=== PATIENT | female | born 1985 | race American Indian/Alaskan Native ===

== ENCOUNTER 2017-12-25 08:11 | Emergency (ER) | payer OTHER ==
[2017-12-25 08:34] VITALS: BP 113/72
[2017-12-25 09:23] LABS: Basophils % (Auto) 0.5 % (0.0-1.8); Eosinophils # (Auto) 0.2 K/mm3 (0.0-0.4); Eosinophils % (Auto) 2.5 % (0.0-4.3); Hemoglobin 11.8 gm/dl (10.1-14.3); Lymphocytes # (Auto) 2.5 K/mm3 (1.2-5.4); Lymphocytes % (Auto) 36.5 % (13.4-35.0); Mean Corpuscular HGB Conc 33 % (30-34); Mean Corpuscular Hemoglobin 30 pg (28-32); Mean Corpuscular Volume 91 fl (79-97); Monocytes # (Auto) 0.4 K/mm3 (0.0-0.8); Monocytes % (Auto) 5.3 % (0.0-7.3); Platelet Count 262 K/mm3 (140-440); Red Blood Count 3.95 M/mm3 (3.65-5.03); Red Cell Distribution Width 14.4 % (13.2-15.2)
[2017-12-25 09:26] LABS: HCG Qualitative,Urine Negative (Negative)
[2017-12-25 09:29] LABS: Bacteria,Urine 1+ /HPF (Negative); Bilirubin,Urine NEG (Negative); Blood,Urine NEG (Negative); Color,Urine Yellow (Yellow); Mucus,Urine FEW /HPF; Protein,Urine <15 mg/dL mg/dL (Negative); Urobilinogen,Urine < 2.0 mg/dL (<2.0)
[2017-12-25 09:49] LABS: Alanine Aminotransferase 9 units/L (7-56); BUN/Creatinine Ratio 13; Blood Urea Nitrogen 9 mg/dL (7-17); Calcium 9.1 mg/dL (8.4-10.2); Hemolysis Index 12
[2017-12-25] MEDS ORDERED: TORADOL IM ONE (11:00)
--- NOTE | 2017-12-25 11:05 | Emergency Department Report ---
ED Abdominal Pain HPI - General Chief Complaint: Abdominal Pain Stated Complaint: PAIN STOMACH AND BACK Time Seen by Provider: 12/25/17 10:52 Source: patient Mode of arrival: Ambulatory Limitations: No Limitations - History of Present Illness Initial Comments: This is a 32-year-old female nontoxic, well nourished in appearance, no acute signs of distress presents to the ED with c/o of acute on chronic intermittent right upper quadrant pain that radiates to right flank region x1 month. Patient stated she has a history of gallbladder stones and stated the symptoms are similar as her history of gallstones. Patient denies any nausea, vomiting, chest pain, shortness of breath, numbness, tingling, headache, stiff neck. She denies any dysuria, polyuria or hematuria. Denies any vaginal discharge or vaginal bleeding. Patient denies any allergies. Past medical history includes gallstones. MD Complaint: abdominal pain, flank pain -: month(s) (1) Location: RUQ Radiation: R flank Migration to: no migration Severity: mild Severity scale (0 -10): 8 Quality: aching Consistency: constant Improves With: nothing Worsens With: nothing Associated Symptoms: denies other symptoms. denies: nausea, vomiting, diarrhea , fever, chills, constipation, dysuria, hematemesis, hematochezia, melena, hematuria, anorexia, syncope - Related Data Previous Rx's Medication Instructions Recorded Last Taken Type Ibuprofen [Motrin] 600 mg PO Q8H PRN #30 tablet 12/25/17 Unknown Rx Allergies Allergy/AdvReac Type Severity Reaction Status Date / Time No Known Allergies Allergy Unverified 12/25/17 08:31 ED Review of Systems ROS: Stated complaint: PAIN STOMACH AND BACK Other details as noted in HPI Constitutional: denies: chills, fever Eyes: denies: eye pain, eye discharge, vision change ENT: denies: ear pain, throat pain Respiratory: denies: cough, shortness of breath, wheezing Cardiovascular: denies: chest pain, palpitations Endocrine: no symptoms reported Gastrointestinal: abdominal pain. denies: nausea, diarrhea Genitourinary: denies: urgency, dysuria, discharge Musculoskeletal: denies: back pain, joint swelling, arthralgia Skin: denies: rash, lesions Neurological: denies: headache, weakness, paresthesias Psychiatric: denies: anxiety, depression Hematological/Lymphatic: denies: easy bleeding, easy bruising ED Past Medical Hx - Past Medical History Previous Medical History?: No - Surgical History Past Surgical History?: No - Social History Smoking Status: Never Smoker - Medications Home Medications: Home Medications Medication Instructions Recorded Confirmed Last Taken Type Ibuprofen [Motrin] 600 mg PO Q8H PRN #30 tablet 12/25/17 Unknown Rx ED Physical Exam - General Limitations: No Limitations General appearance: alert, in no apparent distress - Head Head exam: Present: atraumatic, normocephalic - Eye Eye exam: Present: normal appearance Pupils: Present: normal accommodation - ENT ENT exam: Present: normal exam, mucous membranes moist - Neck Neck exam: Present: normal inspection, full ROM - Respiratory Respiratory exam: Present: normal lung sounds bilaterally. Absent: respiratory distress, wheezes, rales, rhonchi, stridor, chest wall tenderness, accessory muscle use, decreased breath sounds, prolonged expiratory - Cardiovascular Cardiovascular Exam: Present: regular rate, normal rhythm, normal heart sounds. Absent: bradycardia, tachycardia, irregular rhythm, systolic murmur, diastolic murmur, rubs, gallop - GI/Abdominal GI/Abdominal exam: Present: soft, tenderness (RUQ), normal bowel sounds. Absent : distended, guarding, rebound, rigid, diminished bowel sounds - Expanded GI/Abdominal Exam Expanded GI/Abdominal exam: Present: Mejía's sign. Absent: psoas sign, obturator sign, heel tap sign, Rovsing's sign, tenderness at [place]bur[place]'s Point, ascites - Rectal Rectal exam: Present: deferred - Extremities Exam Extremities exam: Present: normal inspection, full ROM, normal capillary refill - Back Exam Back exam: Present: normal inspection, full ROM. Absent: tenderness, CVA tenderness (R), CVA tenderness (L), muscle spasm, paraspinal tenderness, vertebral tenderness, rash noted - Neurological Exam Neurological exam: Present: alert, oriented X3, normal gait - Psychiatric Psychiatric exam: Present: normal affect, normal mood - Skin Skin exam: Present: warm, dry, intact, normal color. Absent: rash ED Course Vital Signs 12/25/17 08:32 Temperature 98.5 F Pulse Rate 78 Respiratory 18 Rate Blood Pressure 113/72 O2 Sat by Pulse 100 Oximetry - Reevaluation(s) Reevaluation #1: 12/25/17 11:08 Patient is speaking in full sentences with no signs of distress noted. ED Medical Decision Making - Lab Data Result diagrams: 12/25/17 09:08 12/25/17 09:08 - Medical Decision Making This is a 32-year-old female that presents with gallstones. Patient is stable and was examined by me. Labs within normal limits. UA within normal limits. US abdomen obtained and dictated by radiologist. Patient is notified of the US report with no questions noted by the patient. Patient did receive Toradol 60 mg IM in the ED which patient stated symptoms are improving and subsiding. Patient was instructed and referred to Follow-up with a primary care doctor/ general surgeon in 3-5 days or if symptoms worsen and continue return to emergency room as soon as possible. At time of discharge, the patient does not seem toxic or ill in appearance. No acute signs of distress noted. Patient agrees to discharge treatment plan of care. No further questions noted by the patient. Critical care attestation.: If time is entered above; I have spent that time in minutes in the direct care of this critically ill patient, excluding procedure time. ED Disposition Clinical Impression: Gallstones Disposition: DC-01 TO HOME OR SELFCARE Is pt being admited?: No Does the pt Need Aspirin: No Condition: Stable Instructions: Ibuprofen (By mouth) Additional Instructions: Follow-up with a primary care doctor/general suregon in 3-5 days or if symptoms worsen and continue return to emergency room as soon as possible. Do not drink any alcohol or eat fatty foods as this triggers gallstones. Prescriptions: Ibuprofen [Motrin] 600 mg PO Q8H PRN #30 tablet PRN Reason: Pain Referrals: PRIMARY CARE, [Primary Care Provider] - 3-5 Days JEREMIAH MANZANO MD [Staff Physician] - 3-5 Days YARON SHAH MD [Staff Physician] - 3-5 Days [facility] [Outside] - 3-5 Days [facility] [Outside] - 3-5 Days Forms: Work/School Release Form(ED)
--- NOTE | 2017-12-25 11:54 | Ultrasound Report ---
ULTRASOUND ABDOMEN COMPLETE: TECHNIQUE: Transabdominal ultrasound with color Doppler interrogation. HISTORY: abdominal pain. COMPARISON: none. FINDINGS: LIVER: Normal. BILIARY SYSTEM: A large shadowing gallstone is identified in the gallbladder neck measuring up to 1.7 cm. No abnormal gallbladder distention or wall thickening. The CBD measures 4 mm. PANCREAS: Normal. SPLEEN: Normal. KIDNEYS: Normal. AORTA/IVC: Normal. ASCITES: None. IMPRESSION: Large gallstone. No secondary findings of acute cholecystitis.
== END 2017-12-25 12:31 | disposition home or self-care (01) ==
LOC: ED 08:11
DX: K80.80 Other cholelithiasis without obstruction (principal); G89.29 Other chronic pain
CPT/HCPCS: 36415; 76700; 80053; 81001; 81025; 85025; 96372; 99284; J1885

== ENCOUNTER 2018-10-05 12:49 | Inpatient (IN) | payer SELFPAY ==
--- NOTE | 2018-10-05 13:17 | Emergency Department Report ---
ED General Adult HPI - General Chief complaint: Hyperglycemia Stated complaint: HIGH GLUCOSE Time Seen by Provider: 10/05/18 13:06 Source: patient, RN notes reviewed, old records reviewed Mode of arrival: Ambulatory Limitations: No Limitations - History of Present Illness Initial comments: This is a 32-year-old female who is not known to this provider previously, who does not have a formal diagnosis of diabetes, who presents to the ER with polyuria, polydipsia and hyperglycemia. She reports symptoms present 3 weeks. She is not having pain. She reports that at work, a coworker noticed that she was urinating frequently, and checked her glucose in the office, and it was greater than 500. Her symptoms are constant for the past 3 weeks, did not radiate anywhere, or painless, and do not have exacerbating or relieving factors. Patient reports that she consumes quite a bit of juice, and does not get much physical activity. She does not have any physical pain per se. -: Gradual, week(s) Consistency: constant Improves with: none Worsens with: none Associated Symptoms: other (polyuria, polydipsia). denies: confusion, chest pain, cough, diaphoresis, fever/chills, headaches, loss of appetite, malaise, nausea/vomiting, rash, seizure, shortness of breath, syncope, weakness - Related Data Previous Rx's Medication Instructions Recorded Last Taken Type Ibuprofen [Motrin] 600 mg PO Q8H PRN #30 tablet 12/25/17 1 Month Ago Rx ~01/15/18 HYDROcodone/APAP 5-325 [[place] 1 - 2 each PO Q4HR PRN #30 tablet 02/16/18 Unknown Rx 5/325] Allergies Allergy/AdvReac Type Severity Reaction Status Date / Time Penicillins Allergy Hives Verified 02/14/18 06:48 ED Review of Systems ROS: Stated complaint: HIGH GLUCOSE Other details as noted in HPI Constitutional: denies: fever Eyes: denies: eye discharge ENT: denies: epistaxis Respiratory: denies: cough Cardiovascular: denies: chest pain Endocrine: increased thirst, increased urine Gastrointestinal: denies: abdominal pain, nausea, vomiting Genitourinary: frequency. denies: dysuria Musculoskeletal: denies: back pain Skin: denies: lesions Neurological: denies: headache Psychiatric: denies: anxiety ED Past Medical Hx - Past Medical History Previous Medical History?: No Hx Diabetes: No Hx HIV: No - Surgical History Hx Cholecystectomy: Yes - Social History Smoking Status: Current Every Day Smoker Substance Use Type: None - Medications Home Medications: Home Medications Medication Instructions Recorded Confirmed Last Taken Type Ibuprofen [Motrin] 600 mg PO Q8H PRN #30 tablet 12/25/17 02/14/18 1 Month Ago Rx ~01/15/18 HYDROcodone/APAP 5-325 [[place] 1 - 2 each PO Q4HR PRN #30 tablet 02/16/18 Unknown Rx 5/325] ED Physical Exam - General Limitations: No Limitations General appearance: alert, in no apparent distress - Head Head exam: Present: atraumatic, normocephalic - Eye Eye exam: Present: normal appearance, EOMI. Absent: nystagmus - ENT ENT exam: Present: normal exam, normal orophraynx, mucous membranes moist, normal external ear exam - Neck Neck exam: Present: normal inspection, full ROM. Absent: tenderness, meningismus - Respiratory Respiratory exam: Present: normal lung sounds bilaterally. Absent: respiratory distress - Cardiovascular Cardiovascular Exam: Present: regular rate, normal rhythm, normal heart sounds. Absent: bradycardia, tachycardia, irregular rhythm, systolic murmur, diastolic murmur, rubs, gallop - GI/Abdominal GI/Abdominal exam: Present: soft. Absent: distended, tenderness, guarding, rebound, rigid, pulsatile mass - Extremities Exam Extremities exam: Present: normal inspection, full ROM, other (2+ pulses noted in the bilateral upper, lower extremities. Compartments soft. No long bony tenderness. The pelvis is stable.). Absent: pedal edema, joint swelling, calf tenderness - Back Exam Back exam: Present: normal inspection, full ROM. Absent: tenderness, CVA tenderness (R), paraspinal tenderness, vertebral tenderness - Neurological Exam Neurological exam: Present: alert, oriented X3, CN II-XII intact, normal gait, other (Extraocular movements intact. Tongue midline. No facial droop. Facial sensation intact to light touch in the V1, V2, V3 distribution bilaterally. 5 and 5 strength in 4 extremities.. Sensation is intact to light touch in 4 extremities.). Absent: motor sensory deficit - Psychiatric Psychiatric exam: Present: normal affect, normal mood - Skin Skin exam: Present: warm, dry, intact, normal color. Absent: rash ED Course Vital Signs 10/05/18 10/05/18 12:55 13:40 Temperature 98.3 F 98.5 F Pulse Rate 98 H 18 L Respiratory 16 18 Rate Blood Pressure 139/90 Blood Pressure 117/78 [Right] O2 Sat by Pulse 100 100 Oximetry ED Medical Decision Making - Lab Data Result diagrams: 10/05/18 13:19 10/05/18 13:20 Vital Signs 10/05/18 10/05/18 12:55 13:40 Temperature 98.3 F 98.5 F Pulse Rate 98 H 18 L Respiratory 16 18 Rate Blood Pressure 139/90 Blood Pressure 117/78 [Right] O2 Sat by Pulse 100 100 Oximetry Lab Results 10/05/18 10/05/18 10/05/18 Range/Units 13:01 13:19 13:20 WBC 6.8 (4.5-11.0) K/mm3 RBC 4.24 (3.65-5.03) M/mm3 Hgb 12.5 (10.1-14.3) gm/dl Hct 38.2 (30.3-42.9) % MCV 90 (79-97) fl MCH 30 (28-32) pg MCHC 33 (30-34) % RDW 15.2 (13.2-15.2) % Plt Count 277 (140-440) K/mm3 Lymph % (Auto) 20.5 (13.4-35.0) % [place] % (Auto) 6.3 (0.0-7.3) % Eos % (Auto) 0.9 (0.0-4.3) % Baso % (Auto) 1.2 (0.0-1.8) % Lymph # 1.4 (1.2-5.4) K/mm3 [place] # 0.4 (0.0-0.8) K/mm3 Eos # 0.1 (0.0-0.4) K/mm3 Baso # 0.1 (0.0-0.1) K/mm3 Seg Neutrophils % 71.1 H (40.0-70.0) % Seg Neutrophils # 4.8 (1.8-7.7) K/mm3 VBG pH (7.320-7.420) Sodium 120 L (137-145) mmol/L Potassium 4.6 (3.6-5.0) mmol/L Chloride 80.9 L (98-107) mmol/L Carbon Dioxide 20 L (22-30) mmol/L Anion Gap 24 mmol/L BUN 10 (7-17) mg/dL Creatinine 1.0 (0.7-1.2) mg/dL Estimated GFR > 60 ml/min BUN/Creatinine Ratio 10 % Glucose 912 H* (65-100) mg/dL POC Glucose > 500 H (70-105) Calcium 10.0 (8.4-10.2) mg/dL Magnesium (1.7-2.3) mg/dL HCG, Quant (0-4) mIU/mL 10/05/18 10/05/18 10/05/18 Range/Units 13:20 13:20 13:20 WBC (4.5-11.0) K/mm3 RBC (3.65-5.03) M/mm3 Hgb (10.1-14.3) gm/dl Hct (30.3-42.9) % MCV (79-97) fl MCH (28-32) pg MCHC (30-34) % RDW (13.2-15.2) % Plt Count (140-440) K/mm3 Lymph % (Auto) (13.4-35.0) % [place] % (Auto) (0.0-7.3) % Eos % (Auto) (0.0-4.3) % Baso % (Auto) (0.0-1.8) % Lymph # (1.2-5.4) K/mm3 [place] # (0.0-0.8) K/mm3 Eos # (0.0-0.4) K/mm3 Baso # (0.0-0.1) K/mm3 Seg Neutrophils % (40.0-70.0) % Seg Neutrophils # (1.8-7.7) K/mm3 VBG pH 7.323 (7.320-7.420) Sodium (137-145) mmol/L Potassium (3.6-5.0) mmol/L Chloride (98-107) mmol/L Carbon Dioxide (22-30) mmol/L Anion Gap mmol/L BUN (7-17) mg/dL Creatinine (0.7-1.2) mg/dL Estimated GFR ml/min BUN/Creatinine Ratio % Glucose (65-100) mg/dL POC Glucose (70-105) Calcium (8.4-10.2) mg/dL Magnesium 2.20 (1.7-2.3) mg/dL HCG, Quant < 2 (0-4) mIU/mL - Medical Decision Making Differential diagnosis, including but not limited to: Diabetic ketoacidosis, hyperosmolar state, hyperglycemia Assessment and plan: 32-year-old female who is remarkably well-appearing polyuria, polydipsia and hyperglycemia. The patient is afebrile with reassuring vital signs, and in no acute distress. Extensive discussion had with patient regarding likely diagnosis of diabetes, and we discussed diet and lifestyle modifications. Specifically instructed patient to discontinue or minimize juice consumption and sugar consumption. Laboratory studies in the emergency room suggest anion gap acidosis, hyperglycemia, and pseudohyponatremia. Given sugar of greater than 900, with accompanying anion gap acidosis, I recommended admission to the hospital for metabolic correction to the patient. She is amenable to this plan of care. She is given IV fluids, insulin push, started on insulin drip. Presented case to Hospital physician, Dr. Lau, who except the patient to the medical service for correction of aforementioned metabolic derangement. Critical Care Time: Yes Critical care time in (mins) excluding proc time.: 35 Critical care attestation.: If time is entered above; I have spent that time in minutes in the direct care of this critically ill patient, excluding procedure time. ED Disposition Clinical Impression: Diabetic ketoacidosis Disposition: OP ADMIT IP TO THIS HOSP Is pt being admited?: Yes Condition: Good Instructions: Diabetic Ketoacidosis (ED)
[2018-10-05] MEDS ORDERED: NACL 0.9% 1000 ML 2,000 ML IV ONE (13:27)
[2018-10-05] MEDS ORDERED: HumuLIN R IV ONE (13:27)
[2018-10-05 13:32] LABS: Hematocrit 38.2 % (30.3-42.9); Hemoglobin 12.5 gm/dl (10.1-14.3); Mean Corpuscular HGB Conc 33 % (30-34); Mean Corpuscular Hemoglobin 30 pg (28-32); Mean Corpuscular Volume 90 fl (79-97); Red Blood Count 4.24 M/mm3 (3.65-5.03)
[2018-10-05 13:33] LABS: Basophils # (Auto) 0.1 K/mm3 (0.0-0.1); Basophils % (Auto) 1.2 % (0.0-1.8); Eosinophils # (Auto) 0.1 K/mm3 (0.0-0.4); Eosinophils % (Auto) 0.9 % (0.0-4.3); Lymphocytes # (Auto) 1.4 K/mm3 (1.2-5.4); Lymphocytes % (Auto) 20.5 % (13.4-35.0); Monocytes # (Auto) 0.4 K/mm3 (0.0-0.8); Monocytes % (Auto) 6.3 % (0.0-7.3); Platelet Count 277 K/mm3 (140-440); Red Cell Distribution Width 15.2 % (13.2-15.2)
[2018-10-05 13:48] LABS: BUN/Creatinine Ratio 10; Blood Urea Nitrogen 10 mg/dL (7-17); Hemolysis Index 5
[2018-10-05] MEDS ORDERED: D50W (25GM) Syringe IV PRN ×3 (14:23→17:36)
[2018-10-05] MEDS ORDERED: HumuLIN R 100 UNITS in NACL 0.9% 99 ML IV SCH ×3 (15:00→18:00)
[2018-10-05] MEDS ORDERED: SODIUM CHLORIDE FLUSH SYRINGE 10 ML IV NR (15:00)
--- NOTE | 2018-10-05 15:27 | History and Physical Report ---
History of Present Illness Chief complaint: I feel sick doctor History of present illness: 32 YO Female with Nicotine Dependence presents to ED for evaluation. Pt states that she has experienced Nausea, polyuria, polydipsia, and feeling weak over the past 3 weeks with increased frequency and intensity of symptoms over the past 3 days. Pt was at work, and reported symptoms to a coworker who checked her blood glucose, and it was found to be greater than 500. Pt transported to [facility] for further care and evaluation. Pt seen and evaluated in ED and found to have new onset DM complicated by DKA, as well as Metabolic Acidosis. Pt admitted to ICU and initiated on DKA Protocol. Past History Past Medical History: other (Nicotine Dependence) Past Surgical History: cholecystectomy Social history: single, smoking. denies: alcohol abuse, prescription drug abuse Family history: diabetes, hypertension Medications and Allergies Allergies Allergy/AdvReac Type Severity Reaction Status Date / Time Penicillins Allergy Hives Verified 02/14/18 06:48 Home Medications Medication Instructions Recorded Confirmed Last Taken Type Ibuprofen [Motrin] 600 mg PO Q8H PRN #30 tablet 12/25/17 02/14/18 1 Month Ago Rx ~01/15/18 HYDROcodone/APAP 5-325 [[place] 1 - 2 each PO Q4HR PRN #30 tablet 02/16/18 Unknown Rx 5/325] Active Meds: Active Medications Dextrose (D50w (25gm) Syringe) 0 ml IV PRN PRN PRN Reason: Hypoglycemia Potassium Chloride/Dextrose/Sod Cl (D5w/0.45% Nacl/Kcl 20 Meq) 20 meq in 1,000 mls @ 125 mls/hr IV DIRECT ROHAN Insulin Human Regular 100 (units/ Sodium Chloride) 100 mls @ 1 mls/hr IV TITR ROHAN; Protocol Sodium Chloride (Sodium Chloride Flush Syringe 10 Ml) 10 ml IV PRN NR Stop: 10/06/18 14:59 Review of Systems Constitutional: no weight loss, no weight gain, no fever, no chills Ears, nose, mouth and throat: no ear pain, no ear discharge, no tinnitis, no decreased hearing, no nasal congestion Breasts: no change in shape, no swelling, no mass Cardiovascular: no chest pain, no orthopnea, no palpitations, no rapid/irregular heart beat Respiratory: no cough, no cough with sputum, no excessive sputum, no hemoptysis Gastrointestinal: nausea, no abdominal pain, no vomiting, no diarrhea, no constipation, no change in bowel habits Genitourinary Female: no dysmenorrhea, no pelvic pain, no flank pain, no menorrhagia Rectal: no pain, no incontinence, no bleeding Musculoskeletal: no neck stiffness, no neck pain, no shooting arm pain, no arm numbness/tingling, no low back pain Integumentary: no rash, no pruritis, no redness, no sores Neurological: no transient paralysis, no paralysis, no numbness, no tingling, no seizures, no syncope, no tremors Psychiatric: no anxiety, no memory loss, no change in sleep habits, no sleep disturbances, no insomnia, no hypersomnia, no change in appetite, no change in libido Endocrine: polyphagia, excessive thirst, polydipsia, polyuria, no cold intolerance, no heat intolerance, no increase in ring/shoe/hat size, no proptosis Hematologic/Lymphatic: no easy bruising, no easy bleeding, no lymphadenopathy, no lymphedema Allergic/Immunologic: no urticaria, no allergic rhinitis, no wheezing, no persistent infections, no anaphylaxis, no angioedema Exam - Constitutional Vitals: Temp Pulse Resp BP Pulse Ox 98.5 F 18 L 18 117/78 100 10/05/18 13:40 10/05/18 13:40 10/05/18 13:40 10/05/18 13:40 10/05/18 13:40 General appearance: Present: mild distress - EENT Eyes: Present: PERRL ENT: hearing intact, clear oral mucosa - Neck Neck: Present: supple, normal ROM - Respiratory Respiratory effort: normal Respiratory: bilateral: CTA - Cardiovascular Heart Sounds: Present: S1 & S2. Absent: rub, click - Extremities Extremities: pulses symmetrical, No edema Peripheral Pulses: within normal limits - Abdominal General gastrointestinal: Present: soft, non-tender, non-distended, normal bowel sounds Female genitourinary: Present: normal - Integumentary Integumentary: Present: clear, warm, dry - Musculoskeletal Musculoskeletal: gait normal, strength equal bilaterally - Psychiatric Psychiatric: appropriate mood/affect, intact judgment & insight - Neurologic Neurologic: CNII-XII intact, moves all extremities Results - Labs CBC & Chem 7: 10/05/18 13:19 10/05/18 15:36 Labs: Abnormal lab results 10/05/18 10/05/18 10/05/18 Range/Units 13:01 13:19 13:20 Seg Neutrophils % 71.1 H (40.0-70.0) % Sodium 120 L (137-145) mmol/L Chloride 80.9 L (98-107) mmol/L Carbon Dioxide 20 L (22-30) mmol/L Glucose 912 H* (65-100) mg/dL POC Glucose > 500 H (70-105) Assessment and Plan - Patient Problems (1) Diabetic ketoacidosis Current Visit: Yes Status: Acute Plan to address problem: Admit to ICU, Insulin drip, IVF resuscitation, monitor uop q shift, monitor anion gap, serial bmp, The high probability of a clinically significant, sudden or life threatening deterioration of the [endocrine, neuro, renal] system(s) required my full and direct attention, intervention and personal management. The aggregate critical care time was [65] minutes. This time is in addition to time spent performing reported procedures but includes the following: [x] Data Review and interpretation [x] Patient assessment and monitoring of vital signs [x] Documentation [x] Medication orders and management (2) Acidosis Current Visit: Yes Status: Acute Plan to address problem: treat DKA, IVf resuscitation, repeat BMP (3) DVT prophylaxis Current Visit: Yes Status: Acute Plan to address problem: SCD to BLE while in bed.
[2018-10-05] MEDS ORDERED: NACL 0.9% 1000 ML 1,000 ML IV ONE (15:59)
[2018-10-05] MEDS ORDERED: NACL 0.45% 2,000 ML IV SCH (16:00)
[2018-10-05 16:06] LABS: BUN/Creatinine Ratio 10; Blood Urea Nitrogen 8 mg/dL (7-17); Calcium 8.8 mg/dL (8.4-10.2); Hemolysis Index 4
[2018-10-05] MEDS: D5W/0.45% NACL/KCL 20 MEQ 20 MEQ/1,000 ML BAG IV SCH (16:08)
[2018-10-05] MEDS ORDERED: SODIUM CHLORIDE FLUSH SYRINGE 10 ML IV PRN (17:36)
[2018-10-05 18:52] LABS: BUN/Creatinine Ratio 10; Blood Urea Nitrogen 8 mg/dL (7-17); Hemolysis Index 11
[2018-10-05 18:56] LABS: BUN/Creatinine Ratio 9; Blood Urea Nitrogen 7 mg/dL (7-17); Calcium 8.8 mg/dL (8.4-10.2); Hemolysis Index 7
[2018-10-05 20:31] LABS: BUN/Creatinine Ratio 10; Blood Urea Nitrogen 7 mg/dL (7-17); Calcium 8.7 mg/dL (8.4-10.2); Hemolysis Index 2
[2018-10-05 23:27] LABS: BUN/Creatinine Ratio 10; Blood Urea Nitrogen 7 mg/dL (7-17); Calcium 8.7 mg/dL (8.4-10.2); Hemolysis Index 9
[2018-10-06 00:28] LABS: BUN/Creatinine Ratio 10; Blood Urea Nitrogen 7 mg/dL (7-17); Calcium 8.7 mg/dL (8.4-10.2); Hemolysis Index 100
[2018-10-06 02:39] LABS: BUN/Creatinine Ratio 9; Blood Urea Nitrogen 6 mg/dL (7-17); Calcium 8.5 mg/dL (8.4-10.2); Hemolysis Index 4
[2018-10-06] MEDS: SODIUM CHLORIDE FLUSH SYRINGE 10 ML IV SCH ×3 (07:02→21:52)
[2018-10-06 08:50] LABS: BUN/Creatinine Ratio 7; Blood Urea Nitrogen 4 mg/dL (7-17); Calcium 8.4 mg/dL (8.4-10.2); Hemolysis Index 24
[2018-10-06] MEDS: D5W/0.45% NACL/KCL 20 MEQ 20 MEQ/1,000 ML BAG IV SCH (08:59)
[2018-10-06 11:16] LABS: BUN/Creatinine Ratio 7; Blood Urea Nitrogen 4 mg/dL (7-17); Calcium 8.3 mg/dL (8.4-10.2); Hemolysis Index 36
--- NOTE | 2018-10-06 13:27 | Progress Note ---
Assessment and Plan - Patient Problems (1) Diabetic ketoacidosis Current Visit: Yes Status: Acute Qualifiers: Diabetes mellitus type: type 2 Plan to address problem: Improved Patient initiated on Januvia 100 mg po qd and Lantus 25 units sq hs And ACHS coverage (2) Obesity Current Visit: Yes Status: Chronic Qualifiers: Obesity type: due to excess calories Plan to address problem: Patient counselled to loose 30 lbs (3) DVT prophylaxis Current Visit: Yes Status: Acute Plan to address problem: on lovenox Subjective Date of service: 10/06/18 Principal diagnosis: DKA/HHNK Interval history: Sx Better No vomiting Objective - Constitutional Vitals: Vital Signs - 12hr 10/06/18 10/06/18 10/06/18 01:30 01:40 01:50 Temperature Pulse Rate 87 78 84 Respiratory 23 21 21 Rate Blood Pressure 85/51 85/51 85/51 O2 Sat by Pulse 98 99 98 Oximetry 10/06/18 10/06/18 10/06/18 02:00 02:10 02:20 Temperature Pulse Rate 76 93 H 73 Respiratory 22 20 17 Rate Blood Pressure 102/69 102/69 102/69 O2 Sat by Pulse 100 100 100 Oximetry 10/06/18 10/06/18 10/06/18 02:30 02:40 02:50 Temperature Pulse Rate 75 79 80 Respiratory 20 21 20 Rate Blood Pressure 102/69 102/69 102/69 O2 Sat by Pulse 100 100 99 Oximetry 10/06/18 10/06/18 10/06/18 03:00 03:10 03:14 Temperature 98.9 F Pulse Rate 74 88 Respiratory 19 13 Rate Blood Pressure 99/63 99/63 O2 Sat by Pulse 100 100 Oximetry 10/06/18 10/06/18 10/06/18 03:20 03:30 03:40 Temperature Pulse Rate 74 84 77 Respiratory 19 21 19 Rate Blood Pressure 99/63 99/63 99/63 O2 Sat by Pulse 100 100 100 Oximetry 10/06/18 10/06/18 10/06/18 03:50 04:00 04:10 Temperature Pulse Rate 79 75 78 Respiratory 22 19 20 Rate Blood Pressure 99/63 96/59 96/59 O2 Sat by Pulse 100 100 100 Oximetry 10/06/18 10/06/18 10/06/18 04:20 04:30 04:40 Temperature Pulse Rate 81 71 81 Respiratory 20 18 20 Rate Blood Pressure 96/59 96/59 96/59 O2 Sat by Pulse 100 100 99 Oximetry 10/06/18 10/06/18 10/06/18 04:50 05:00 05:10 Temperature Pulse Rate 82 82 76 Respiratory 19 15 20 Rate Blood Pressure 96/59 106/64 106/64 O2 Sat by Pulse 99 100 100 Oximetry 10/06/18 10/06/18 10/06/18 05:20 05:30 05:40 Temperature Pulse Rate 81 80 79 Respiratory 22 21 19 Rate Blood Pressure 106/64 106/64 106/64 O2 Sat by Pulse 100 100 100 Oximetry 10/06/18 10/06/18 10/06/18 05:50 06:00 06:10 Temperature Pulse Rate 83 70 73 Respiratory 21 21 18 Rate Blood Pressure 106/64 83/55 83/55 O2 Sat by Pulse 100 100 100 Oximetry 10/06/18 10/06/18 10/06/18 06:20 06:30 06:40 Temperature Pulse Rate 81 79 79 Respiratory 20 21 20 Rate Blood Pressure 83/55 83/55 83/55 O2 Sat by Pulse 100 100 100 Oximetry 10/06/18 10/06/18 10/06/18 06:50 07:00 07:10 Temperature Pulse Rate 81 80 83 Respiratory 21 23 29 H Rate Blood Pressure 83/55 99/64 99/64 O2 Sat by Pulse 100 100 100 Oximetry 10/06/18 10/06/18 10/06/18 07:20 07:30 07:40 Temperature Pulse Rate 90 76 80 Respiratory 16 21 20 Rate Blood Pressure 99/64 99/64 99/64 O2 Sat by Pulse 100 100 100 Oximetry 10/06/18 10/06/18 10/06/18 07:50 08:00 08:10 Temperature Pulse Rate 78 82 72 Respiratory 12 18 20 Rate Blood Pressure 99/64 99/64 99/64 O2 Sat by Pulse 100 99 100 Oximetry 10/06/18 10/06/18 10/06/18 08:20 08:30 08:40 Temperature Pulse Rate 75 80 85 Respiratory 15 16 19 Rate Blood Pressure 99/64 99/64 99/64 O2 Sat by Pulse 100 100 100 Oximetry 10/06/18 10/06/18 10/06/18 08:50 09:00 09:10 Temperature Pulse Rate 88 81 90 Respiratory 19 12 20 Rate Blood Pressure 99/64 112/77 112/77 O2 Sat by Pulse 100 100 100 Oximetry 10/06/18 10/06/18 10/06/18 09:20 09:30 09:40 Temperature Pulse Rate 83 86 79 Respiratory 14 23 20 Rate Blood Pressure 112/77 112/77 112/77 O2 Sat by Pulse 98 100 100 Oximetry 10/06/18 10/06/18 10/06/18 09:50 10:00 10:10 Temperature Pulse Rate 81 79 82 Respiratory 20 22 21 Rate Blood Pressure 112/77 118/79 118/79 O2 Sat by Pulse 100 100 98 Oximetry 10/06/18 10/06/18 10/06/18 10:20 10:30 10:40 Temperature Pulse Rate 79 82 91 H Respiratory 20 14 24 Rate Blood Pressure 118/79 118/79 118/79 O2 Sat by Pulse 100 97 100 Oximetry 10/06/18 10/06/18 10/06/18 10:50 11:00 11:10 Temperature Pulse Rate 80 87 82 Respiratory 22 23 20 Rate Blood Pressure 118/79 111/80 111/80 O2 Sat by Pulse 100 100 100 Oximetry 10/06/18 10/06/18 10/06/18 11:20 11:30 11:40 Temperature Pulse Rate 81 80 95 H Respiratory 19 11 L 13 Rate Blood Pressure 111/80 118/79 118/79 O2 Sat by Pulse 100 96 100 Oximetry 10/06/18 10/06/18 10/06/18 11:50 12:00 12:10 Temperature Pulse Rate 87 84 91 H Respiratory 19 28 H 16 Rate Blood Pressure 118/79 119/81 119/81 O2 Sat by Pulse 100 100 100 Oximetry 10/06/18 10/06/18 10/06/18 12:20 12:30 12:31 Temperature 98.8 F Pulse Rate 84 84 Respiratory 24 22 Rate Blood Pressure 119/81 119/81 O2 Sat by Pulse 100 100 Oximetry 10/06/18 10/06/18 10/06/18 12:40 12:50 13:00 Temperature Pulse Rate 85 92 H 93 H Respiratory 16 16 19 Rate Blood Pressure 119/81 119/81 119/81 O2 Sat by Pulse 100 99 100 Oximetry General appearance: Present: no acute distress, well-nourished - EENT Eyes: PERRL, EOM intact ENT: hearing intact, clear oral mucosa Ears: bilateral: normal - Neck Neck: supple, normal ROM - Respiratory Respiratory effort: normal Respiratory: bilateral: CTA - Breasts Breasts: normal - Cardiovascular Rhythm: regular Heart Sounds: Present: S1 & S2. Absent: gallop, rub Extremities: pulses intact, No edema, normal color, Full ROM - Gastrointestinal General gastrointestinal: Present: soft, non-tender, non-distended, normal bowel sounds - Genitourinary Female genitourinary: normal - Integumentary Integumentary: clear, warm, dry - Musculoskeletal Musculoskeletal: 1, strength equal bilaterally - Neurologic Neurologic: moves all extremities - Psychiatric Psychiatric: memory intact, appropriate mood/affect, intact judgment & insight - Labs CBC & Chem 7: 10/05/18 13:19 10/06/18 10:24 Labs: Abnormal lab results 10/05/18 10/05/18 10/05/18 Range/Units 13:19 13:20 15:36 Seg Neutrophils % 71.1 H (40.0-70.0) % Sodium 120 L (137-145) mmol/L Chloride 80.9 L (98-107) mmol/L Carbon Dioxide 20 L (22-30) mmol/L BUN (7-17) mg/dL Creatinine (0.7-1.2) mg/dL Glucose 912 H* (65-100) mg/dL POC Glucose (70-105) Calcium (8.4-10.2) mg/dL Phosphorus 2.40 L (2.5-4.5) mg/dL 10/05/18 10/05/18 10/05/18 Range/Units 15:36 15:55 16:52 Seg Neutrophils % (40.0-70.0) % Sodium 134 L D (137-145) mmol/L Chloride (98-107) mmol/L Carbon Dioxide (22-30) mmol/L BUN (7-17) mg/dL Creatinine (0.7-1.2) mg/dL Glucose 301 H (65-100) mg/dL POC Glucose 316 H (70-105) Calcium (8.4-10.2) mg/dL Phosphorus 2.40 L (2.5-4.5) mg/dL 10/05/18 10/05/18 10/05/18 Range/Units 16:52 17:05 18:21 Seg Neutrophils % (40.0-70.0) % Sodium 135 L (137-145) mmol/L Chloride 97.5 L (98-107) mmol/L Carbon Dioxide (22-30) mmol/L BUN (7-17) mg/dL Creatinine (0.7-1.2) mg/dL Glucose 318 H 210 H (65-100) mg/dL POC Glucose 340 H (70-105) Calcium (8.4-10.2) mg/dL Phosphorus (2.5-4.5) mg/dL 10/05/18 10/05/18 10/05/18 Range/Units 18:34 19:43 20:06 Seg Neutrophils % (40.0-70.0) % Sodium 134 L (137-145) mmol/L Chloride (98-107) mmol/L Carbon Dioxide (22-30) mmol/L BUN (7-17) mg/dL Creatinine (0.7-1.2) mg/dL Glucose 236 H (65-100) mg/dL POC Glucose 209 H 259 H (70-105) Calcium (8.4-10.2) mg/dL Phosphorus (2.5-4.5) mg/dL 10/05/18 10/05/18 10/05/18 Range/Units 20:39 21:43 23:00 Seg Neutrophils % (40.0-70.0) % Sodium 135 L (137-145) mmol/L Chloride (98-107) mmol/L Carbon Dioxide (22-30) mmol/L BUN (7-17) mg/dL Creatinine (0.7-1.2) mg/dL Glucose (65-100) mg/dL POC Glucose 217 H 128 H (70-105) Calcium (8.4-10.2) mg/dL Phosphorus (2.5-4.5) mg/dL 10/05/18 10/06/18 10/06/18 Range/Units 23:44 00:15 01:55 Seg Neutrophils % (40.0-70.0) % Sodium 133 L 135 L (137-145) mmol/L Chloride (98-107) mmol/L Carbon Dioxide 21 L (22-30) mmol/L BUN 6 L (7-17) mg/dL Creatinine (0.7-1.2) mg/dL Glucose 115 H 137 H (65-100) mg/dL POC Glucose 138 H (70-105) Calcium (8.4-10.2) mg/dL Phosphorus (2.5-4.5) mg/dL 10/06/18 10/06/18 10/06/18 Range/Units 01:56 03:12 04:07 Seg Neutrophils % (40.0-70.0) % Sodium (137-145) mmol/L Chloride (98-107) mmol/L Carbon Dioxide (22-30) mmol/L BUN (7-17) mg/dL Creatinine (0.7-1.2) mg/dL Glucose (65-100) mg/dL POC Glucose 151 H 134 H 154 H (70-105) Calcium (8.4-10.2) mg/dL Phosphorus (2.5-4.5) mg/dL 10/06/18 10/06/18 10/06/18 Range/Units 05:11 06:56 07:51 Seg Neutrophils % (40.0-70.0) % Sodium (137-145) mmol/L Chloride (98-107) mmol/L Carbon Dioxide (22-30) mmol/L BUN (7-17) mg/dL Creatinine (0.7-1.2) mg/dL Glucose (65-100) mg/dL POC Glucose 115 H 122 H 169 H (70-105) Calcium (8.4-10.2) mg/dL Phosphorus (2.5-4.5) mg/dL 10/06/18 10/06/18 10/06/18 Range/Units 08:04 08:36 09:16 Seg Neutrophils % (40.0-70.0) % Sodium 134 L (137-145) mmol/L Chloride (98-107) mmol/L Carbon Dioxide 19 L (22-30) mmol/L BUN 4 L (7-17) mg/dL Creatinine 0.6 L (0.7-1.2) mg/dL Glucose 148 H (65-100) mg/dL POC Glucose 163 H 195 H (70-105) Calcium (8.4-10.2) mg/dL Phosphorus (2.5-4.5) mg/dL 10/06/18 10/06/18 10/06/18 Range/Units 09:59 10:24 11:07 Seg Neutrophils % (40.0-70.0) % Sodium 134 L (137-145) mmol/L Chloride (98-107) mmol/L Carbon Dioxide (22-30) mmol/L BUN 4 L (7-17) mg/dL Creatinine 0.6 L (0.7-1.2) mg/dL Glucose 179 H (65-100) mg/dL POC Glucose 186 H 215 H (70-105) Calcium 8.3 L (8.4-10.2) mg/dL Phosphorus (2.5-4.5) mg/dL 10/06/18 10/06/18 Range/Units 12:05 13:06 Seg Neutrophils % (40.0-70.0) % Sodium (137-145) mmol/L Chloride (98-107) mmol/L Carbon Dioxide (22-30) mmol/L BUN (7-17) mg/dL Creatinine (0.7-1.2) mg/dL Glucose (65-100) mg/dL POC Glucose 158 H 151 H (70-105) Calcium (8.4-10.2) mg/dL Phosphorus (2.5-4.5) mg/dL
[2018-10-06] MEDS: HumaLOG SUB-Q SCH ×3 (14:00→21:47)
[2018-10-06 16:31] LABS: BUN/Creatinine Ratio 6; Blood Urea Nitrogen 4 mg/dL (7-17); Calcium 8.4 mg/dL (8.4-10.2); Hemolysis Index 38
--- NOTE | 2018-10-06 17:49 | Event Note ---
Date: 10/06/18 Asked to see for DKA however gap has closed and transferred to medical floor Please re-consult if necessary
[2018-10-06 18:41] LABS: BUN/Creatinine Ratio 6; Blood Urea Nitrogen 4 mg/dL (7-17); Calcium 8.8 mg/dL (8.4-10.2); Hemolysis Index 15
[2018-10-06] MEDS ORDERED: LANTUS SUB-Q SCH (22:00)
[2018-10-07] MEDS: HumaLOG SUB-Q SCH ×4 (02:26→15:02)
[2018-10-07] MEDS: SODIUM CHLORIDE FLUSH SYRINGE 10 ML IV SCH (10:05)
--- NOTE | 2018-10-07 15:10 | Discharge Summary ---
Providers - Providers Date of Admission: 10/05/18 17:36 Date of discharge: 10/07/18 Attending physician: PAULINO BAHENA 10/05/18 17:36 Consult to Dietitian/Nutrition [CONS] Routine Physician Instructions: Reason For Exam: Reason for Consult: Diet education 10/05/18 20:18 Consult to Physician [CONS] Routine Comment: Spoke to Dr. Cavanaugh @ 2029 Consulting Provider: GENO FOWLER Physician Instructions: Reason For Exam: CCU Admit Primary care physician: [employer] Hospitalization Condition: Good Hospital course: Uncontrolled Diabetes--Patient educated about Diabetes Possible adult onset diabetes will Discharge on Lantus insulin and S/s coverage Humulin and Glimepride 2 mg po qd Patient to f/u with PCP and Endicrinologist Disposition: DC-01 TO HOME OR SELFCARE - Discharge Diagnoses (1) Diabetic ketoacidosis Status: Acute Qualifiers: Diabetes mellitus type: type 2 (2) Obesity Status: Chronic Qualifiers: Obesity type: due to excess calories (3) DVT prophylaxis Status: Acute Core Measure Documentation - Palliative Care Palliative Care/ Comfort Measures: Not Applicable - Core Measures Any of the following diagnoses?: none Exam - Constitutional Vitals: Temp Pulse Resp BP Pulse Ox 98.8 F 92 H 18 108/67 97 10/06/18 20:00 10/06/18 20:00 10/06/18 20:00 10/06/18 20:00 10/06/18 20:00 General appearance: Present: no acute distress, well-nourished - EENT Eyes: Present: PERRL ENT: hearing intact, clear oral mucosa - Neck Neck: Present: supple, normal ROM - Respiratory Respiratory effort: normal Respiratory: bilateral: CTA - Cardiovascular Heart rate: 78 Rhythm: regular Heart Sounds: Present: S1 & S2. Absent: rub, click - Extremities Extremities: no ischemia, pulses intact, pulses symmetrical, No edema Peripheral Pulses: within normal limits - Abdominal General gastrointestinal: Present: soft, non-tender, non-distended, normal bowel sounds Female genitourinary: Present: normal - Integumentary Integumentary: Present: clear, warm, dry - Musculoskeletal Musculoskeletal: gait normal, strength equal bilaterally - Psychiatric Psychiatric: appropriate mood/affect, intact judgment & insight - Neurologic Neurologic: CNII-XII intact, moves all extremities - Allied Health Allied health notes reviewed: nursing, case management Plan Activity: no restrictions Diet: diabetic Follow up with: RADHA GARRETT MD [Staff Physician] - 7 Days EZIO LONDON MD [Staff Physician] - 7 Days
[2018-10-07 16:23] VITALS: BP 117/86
== END 2018-10-07 16:27 | disposition home or self-care (01) | DRG 639 ==
LOC: ED 12:49 → CC1 17:36 → 3A 10-06 20:50
PROVIDERS: ADMIT Internal Medicine; ATTEND Internal Medicine
DX: E11.10 Type 2 diabetes mellitus with ketoacidosis without coma (principal); F17.200 Nicotine dependence, unspecified, uncomplicated; E66.9 Obesity, unspecified; Z68.33 Body mass index [BMI] 33.0-33.9, adult; Z83.3 Family history of diabetes mellitus; Z71.3 Dietary counseling and surveillance; Z88.0 Allergy status to penicillin; Z82.49 Family history of ischemic heart disease and other diseases of the circulatory system
CPT/HCPCS: 36415; 80048; 82805; 82962; 83735; 84100; 84702; 85025; G0378; J1815; J7030

== ENCOUNTER 2019-01-01 12:41 | Emergency (ER) | payer SELFPAY ==
--- NOTE | 2019-01-01 12:51 | Emergency Department Report ---
Chief Complaint: Urogenital-Female Stated Complaint: IRRITATED VAGINAL AREA/REDNESS/ITCH Time Seen by Provider: 01/01/19 12:47 - HPI History of Present Illness: This is a 33 y.o. female with irritation and redness to external vagina x 4 days. LMP 12/11/2018. Denies vaginal discharge, abdominal pain, or back pain. PMH DM2 - Exam Vital Signs: Vital Signs 01/01/19 12:47 Temperature 98.0 F Pulse Rate 92 H Respiratory 16 Rate Blood Pressure 129/90 O2 Sat by Pulse 100 Oximetry MSE screening note: Focused history and physical exam performed. Due to findings the following was ordered: Pelvic exam, wet prep ACC for further evaluation. ED Disposition for MSE Condition: Stable
--- NOTE | 2019-01-01 16:01 | Emergency Department Report ---
ED Female HPI - General Chief complaint: Urogenital-Female Stated complaint: IRRITATED VAGINAL AREA/REDNESS/ITCH Time Seen by Provider: 01/01/19 12:47 Source: patient Mode of arrival: Ambulatory Limitations: No Limitations - History of Present Illness Initial comments: Patient is a 33-year-old female presents here complaining of vaginal irritation 12 days. Patient states that 2 days ago she saw her her bump on her vaginal area and she plummeted up with a tweezer. Patient states she states having some irritation to the area. Patient states are its localized to the vulva region. She denies dysuria, vaginal discharge, vaginal odor, vaginal itching and abnormal bleeding. - Related Data Previous Rx's Medication Instructions Recorded Last Taken Type Ibuprofen [Motrin] 600 mg PO Q8H PRN #30 tablet 12/25/17 1 Month Ago Rx ~01/15/18 HYDROcodone/APAP 5-325 [[place] 1 - 2 each PO Q4HR PRN #30 tablet 02/16/18 Unknown Rx 5/325] Glimepiride [Amaryl] 2 mg PO QAM #30 tablet 10/07/18 Unknown Rx Insulin Glargine,Hum.rec.anlog 25 unit SQ QAM #1 vial 10/07/18 Unknown Rx [Lantus Solostar] Insulin Regular, Human [Novolin R] 5 units SUB-Q AC #1 vial 10/07/18 Unknown Rx Fluconazole [Diflucan TAB] 150 mg PO DAILY #2 tablet 01/01/19 Unknown Rx Allergies Allergy/AdvReac Type Severity Reaction Status Date / Time Penicillins Allergy Hives Verified 02/14/18 06:48 ED Review of Systems ROS: Stated complaint: IRRITATED VAGINAL AREA/REDNESS/ITCH Other details as noted in HPI Comment: All other systems reviewed and negative ED Past Medical Hx - Past Medical History Hx Congestive Heart Failure: No Hx Diabetes: Yes (new onset diabetes) Hx Asthma: No Hx COPD: No Hx HIV: No - Surgical History Hx Cholecystectomy: Yes - Social History Smoking Status: Current Some Day Smoker Substance Use Type: Marijuana - Medications Home Medications: Home Medications Medication Instructions Recorded Confirmed Last Taken Type Ibuprofen [Motrin] 600 mg PO Q8H PRN #30 tablet 18 02/14/18 1 Month Ago Rx ~01/15/18 HYDROcodone/APAP 5-325 [[place] 1 - 2 each PO Q4HR PRN #30 tablet 02/16/18 Unknown Rx 5/325] Glimepiride [Amaryl] 2 mg PO QAM #30 tablet 10/07/18 Unknown Rx Insulin Glargine,Hum.rec.anlog 25 unit SQ QAM #1 vial 10/07/18 Unknown Rx [Lantus Solostar] Insulin Regular, Human [Novolin R] 5 units SUB-Q AC #1 vial 10/07/18 Unknown Rx Fluconazole [Diflucan TAB] 150 mg PO DAILY #2 tablet 01/01/19 Unknown Rx ED Physical Exam - General Limitations: No Limitations General appearance: alert, in no apparent distress - Head Head exam: Present: atraumatic, normocephalic - Eye Eye exam: Present: normal appearance - ENT ENT exam: Present: mucous membranes moist - Neck Neck exam: Present: normal inspection - Respiratory Respiratory exam: Present: normal lung sounds bilaterally. Absent: respiratory distress - Cardiovascular Cardiovascular Exam: Present: regular rate, normal rhythm. Absent: systolic murmur, diastolic murmur, rubs, gallop - GI/Abdominal GI/Abdominal exam: Present: soft, normal bowel sounds - External exam: Present: lesions (small scar healed area to right of the clitoris, non tender to palpation, slightly irritated). Absent: erythema, swelling, bleeding - Extremities Exam Extremities exam: Present: normal inspection - Back Exam Back exam: Present: normal inspection - Neurological Exam Neurological exam: Present: alert, oriented X3 - Psychiatric Psychiatric exam: Present: normal affect, normal mood - Skin Skin exam: Present: warm, dry, intact, normal color. Absent: rash ED Course Vital Signs 01/01/19 01/01/19 12:47 16:37 Temperature 98.0 F 97.7 F Pulse Rate 92 H 72 Respiratory 16 14 Rate Blood Pressure 129/90 Blood Pressure 132/88 [Right] O2 Sat by Pulse 100 98 Oximetry ED Medical Decision Making - Medical Decision Making 33-year-old female presents for vaginal per folliculitis Discussed the patient not to her she often. Upon examination there was no signs of section, discharge. Discussed with patient to stop pulling air follicles to prevent this from happening again. Patient states she hasn't put in Neosporin which has been helping. Discussed with the patient to follow-up with her [facility] [employer] doctor she is in no acute distress signs are stable and she'll be discharged at this time Critical care attestation.: If time is entered above; I have spent that time in minutes in the direct care of this critically ill patient, excluding procedure time. ED Disposition Clinical Impression: Vaginitis Disposition: DC- TO HOME OR SELFCARE Is pt being admited?: No Does the pt Need Aspirin: No Condition: Stable Instructions: Vaginitis (ED) Additional Instructions: Make sure to follow up with the primary care physician as discussed. Take all your medications as you've been prescribed. Continue to use Neosporin to the vaginal lesion If you have any worsening symptoms or develop new symptoms please return to ED immediately. Prescriptions: Fluconazole [Diflucan TAB] 150 mg PO DAILY #2 tablet Referrals: NIRANJAN LONGO MD [Primary Care Provider] - 3-5 Days Forms: Work/School Release Form(ED) Time of Disposition: 16:16
[2019-01-01 16:08] LABS: Bilirubin,Urine NEG (Negative); Blood,Urine NEG (Negative); Color,Urine Colorless (Yellow); Protein,Urine <15 mg/dL mg/dL (Negative); Urobilinogen,Urine < 2.0 mg/dL (<2.0); WBC,Urine < 1.0 /HPF (0.0-6.0)
[2019-01-01 16:09] LABS: HCG Qualitative,Urine Negative (Negative)
[2019-01-01 16:38] VITALS: BP 132/88
== END 2019-01-01 16:37 | disposition home or self-care (01) ==
LOC: ED 12:41
DX: N76.0 Acute vaginitis (principal); B96.89 Other specified bacterial agents as the cause of diseases classified elsewhere; E11.9 Type 2 diabetes mellitus without complications; F17.200 Nicotine dependence, unspecified, uncomplicated; Z79.4 Long term (current) use of insulin; Z90.49 Acquired absence of other specified parts of digestive tract; Z88.0 Allergy status to penicillin
CPT/HCPCS: 81001; 81025; 99283

== ENCOUNTER 2019-02-03 07:56 | Emergency (ER) | payer OTHER ==
[2019-02-03 08:26] LABS: Hematocrit 41.4 % (30.3-42.9); Hemoglobin 13.8 gm/dl (10.1-14.3); Mean Corpuscular HGB Conc 34 % (30-34); Mean Corpuscular Volume 94 fl (79-97); Platelet Count 243 K/mm3 (140-440); Red Cell Distribution Width 16.1 % (13.2-15.2)
[2019-02-03 08:47] LABS: Bilirubin,Urine NEG (Negative); Blood,Urine NEG (Negative); Color,Urine Straw (Yellow); Mucus,Urine FEW /HPF; Protein,Urine <15 mg/dL mg/dL (Negative); Urobilinogen,Urine < 2.0 mg/dL (<2.0)
[2019-02-03 08:50] LABS: HCG Qualitative,Urine Negative (Negative)
[2019-02-03 09:13] LABS: Alanine Aminotransferase 10 units/L (7-56); BUN/Creatinine Ratio 7; Blood Urea Nitrogen 6 mg/dL (7-17); Calcium 9.4 mg/dL (8.4-10.2); Hemolysis Index 17
[2019-02-03] MEDS ORDERED: NACL 0.9% 1000 ML 1,000 ML IV ONE ×2 (09:43)
--- NOTE | 2019-02-03 10:19 | Emergency Department Report ---
ED General Adult HPI - General Chief complaint: Hyperglycemia Stated complaint: STD CHECK Time Seen by Provider: 02/03/19 09:23 Source: patient Mode of arrival: Ambulatory Limitations: No Limitations - History of Present Illness Initial comments: The patient presents to the ED for recurrent yeast infections and weight loss. The patient states she was recently diagnosed with diabetes in September but has not been able to afford her medications thus she has not been taking them. Patient denies any chest pain, SOB, or abdominal pain. -: Gradual Severity scale (0 -10): 0 Consistency: constant Improves with: none Worsens with: none Associated Symptoms: denies other symptoms Treatments Prior to Arrival: none - Related Data Previous Rx's Medication Instructions Recorded Last Taken Type Ibuprofen [Motrin] 600 mg PO Q8H PRN #30 tablet 12/25/17 1 Month Ago Rx ~01/15/18 HYDROcodone/APAP 5-325 [[place] 1 - 2 each PO Q4HR PRN #30 tablet 02/16/18 Unknown Rx 5/325] Glimepiride [Amaryl] 2 mg PO QAM #30 tablet 10/07/18 Unknown Rx Insulin Glargine,Hum.rec.anlog 25 unit SQ QAM #1 vial 10/07/18 Unknown Rx [Lantus Solostar] Insulin Regular, Human [Novolin R] 5 units SUB-Q AC #1 vial 10/07/18 Unknown Rx Fluconazole [Diflucan TAB] 150 mg PO DAILY #2 tablet 01/01/19 Unknown Rx metFORMIN [Glucophage] 500 mg PO QDAY #30 tab 02/03/19 Unknown Rx Allergies Allergy/AdvReac Type Severity Reaction Status Date / Time Penicillins Allergy Hives Verified 02/14/18 06:48 ED Review of Systems ROS: Stated complaint: STD CHECK Other details as noted in HPI Constitutional: denies: chills, fever Eyes: denies: eye pain, eye discharge, vision change ENT: denies: ear pain, throat pain Respiratory: denies: cough, shortness of breath, wheezing Cardiovascular: denies: chest pain, palpitations Endocrine: no symptoms reported Gastrointestinal: denies: abdominal pain, nausea, diarrhea Genitourinary: discharge. denies: urgency, dysuria Musculoskeletal: denies: back pain, joint swelling, arthralgia Skin: denies: rash, lesions Neurological: denies: headache, weakness, paresthesias Psychiatric: denies: anxiety, depression Hematological/Lymphatic: denies: easy bleeding, easy bruising ED Past Medical Hx - Past Medical History Previous Medical History?: Yes Hx Congestive Heart Failure: No Hx Diabetes: Yes (new onset diabetes) Hx Asthma: No Hx COPD: No Hx HIV: No - Surgical History Past Surgical History?: Yes Hx Cholecystectomy: Yes - Social History Smoking Status: Never Smoker Substance Use Type: Marijuana - Medications Home Medications: Home Medications Medication Instructions Recorded Confirmed Last Taken Type Ibuprofen [Motrin] 600 mg PO Q8H PRN #30 tablet 12/25/17 02/14/18 1 Month Ago Rx ~01/15/18 HYDROcodone/APAP 5-325 [[place] 1 - 2 each PO Q4HR PRN #30 tablet 02/16/18 Unknown Rx 5/325] Glimepiride [Amaryl] 2 mg PO QAM #30 tablet 10/07/18 Unknown Rx Insulin Glargine,Hum.rec.anlog 25 unit SQ QAM #1 vial 10/07/18 Unknown Rx [Lantus Solostar] Insulin Regular, Human [Novolin R] 5 units SUB-Q AC #1 vial 10/07/18 Unknown Rx Fluconazole [Diflucan TAB] 150 mg PO DAILY #2 tablet 01/01/19 Unknown Rx metFORMIN [Glucophage] 500 mg PO QDAY #30 tab 02/03/19 Unknown Rx ED Physical Exam - General Limitations: No Limitations General appearance: alert, in no apparent distress - Head Head exam: Present: atraumatic, normocephalic - Eye Eye exam: Present: normal appearance, PERRL, EOMI - ENT ENT exam: Present: mucous membranes dry - Neck Neck exam: Present: normal inspection - Respiratory Respiratory exam: Present: normal lung sounds bilaterally. Absent: respiratory distress, wheezes, rales - Cardiovascular Cardiovascular Exam: Present: regular rate, normal rhythm. Absent: systolic murmur, diastolic murmur, rubs, gallop - GI/Abdominal GI/Abdominal exam: Present: soft, normal bowel sounds. Absent: distended, tenderness - External exam: Present: other (deferred) Speculum exam: Present: other (deferred) Bi-manual exam: Present: other (deferred) - Extremities Exam Extremities exam: Present: normal inspection - Back Exam Back exam: Present: normal inspection - Neurological Exam Neurological exam: Present: alert, oriented X3, CN II-XII intact. Absent: motor sensory deficit - Psychiatric Psychiatric exam: Present: normal affect, normal mood - Skin Skin exam: Present: warm, dry, intact, normal color. Absent: rash ED Course Vital Signs 02/03/19 02/03/19 02/03/19 08:21 09:27 09:31 Temperature 97.6 F Pulse Rate 80 Respiratory 18 Rate Blood Pressure 128/80 O2 Sat by Pulse 100 100 100 Oximetry 02/03/19 02/03/19 02/03/19 09:45 10:00 10:15 Temperature Pulse Rate Respiratory Rate Blood Pressure 104/66 114/75 124/85 O2 Sat by Pulse 99 87 Oximetry 02/03/19 02/03/19 10:30 10:45 Temperature Pulse Rate Respiratory Rate Blood Pressure 112/81 125/84 O2 Sat by Pulse 100 100 Oximetry ED Medical Decision Making - Lab Data Result diagrams: 02/03/19 08:17 02/03/19 08:17 Lab Results 02/03/19 02/03/19 02/03/19 Range/Units 08:12 08:17 08:17 WBC 7.7 (4.5-11.0) K/mm3 RBC 4.40 (3.65-5.03) M/mm3 Hgb 13.8 (10.1-14.3) gm/dl Hct 41.4 (30.3-42.9) % MCV 94 (79-97) fl MCH 31 (28-32) pg MCHC 34 (30-34) % RDW 16.1 H (13.2-15.2) % Plt Count 243 (140-440) K/mm3 Sodium 132 L (137-145) mmol/L Potassium 4.5 (3.6-5.0) mmol/L Chloride 92.9 L (98-107) mmol/L Carbon Dioxide 17 L (22-30) mmol/L Anion Gap 27 mmol/L BUN 6 L (7-17) mg/dL Creatinine 0.9 (0.7-1.2) mg/dL Estimated GFR > 60 ml/min BUN/Creatinine Ratio 7 % Glucose 576 H* (65-100) mg/dL POC Glucose 459 H (70-105) Calcium 9.4 (8.4-10.2) mg/dL Total Bilirubin 0.50 (0.1-1.2) mg/dL AST 13 (5-40) units/L ALT 10 (7-56) units/L Alkaline Phosphatase 127 (35-129) units/L Total Protein 8.3 H (6.3-8.2) g/dL Albumin 4.0 (3.9-5) g/dL Albumin/Globulin Ratio 0.9 % Urine Color (Yellow) Urine Turbidity (Clear) Urine pH (5.0-7.0) Ur Specific [place] (1.003-1.030) Urine Protein (Negative) mg/dL Urine Glucose (UA) (Negative) mg/dL Urine Ketones (Negative) mg/dL Urine Blood (Negative) Urine Nitrite (Negative) Urine Bilirubin (Negative) Urine Urobilinogen (<2.0) mg/dL Ur Leukocyte Esterase (Negative) Urine WBC (Auto) (0.0-6.0) /HPF Urine RBC (Auto) (0.0-6.0) /HPF U Epithel Cells (Auto) (0-13.0) /HPF Urine Mucus /HPF Urine HCG, Qual (Negative) 02/03/19 02/03/19 02/03/19 Range/Units 08:22 08:22 11:43 WBC (4.5-11.0) K/mm3 RBC (3.65-5.03) M/mm3 Hgb (10.1-14.3) gm/dl Hct (30.3-42.9) % MCV (79-97) fl MCH (28-32) pg MCHC (30-34) % RDW (13.2-15.2) % Plt Count (140-440) K/mm3 Sodium (137-145) mmol/L Potassium (3.6-5.0) mmol/L Chloride (98-107) mmol/L Carbon Dioxide (22-30) mmol/L Anion Gap mmol/L BUN (7-17) mg/dL Creatinine (0.7-1.2) mg/dL Estimated GFR ml/min BUN/Creatinine Ratio % Glucose (65-100) mg/dL POC Glucose 386 H (70-105) Calcium (8.4-10.2) mg/dL Total Bilirubin (0.1-1.2) mg/dL AST (5-40) units/L ALT (7-56) units/L Alkaline Phosphatase (35-129) units/L Total Protein (6.3-8.2) g/dL Albumin (3.9-5) g/dL Albumin/Globulin Ratio % Urine Color Straw (Yellow) Urine Turbidity Clear (Clear) Urine pH 5.0 (5.0-7.0) Ur Specific [place] 1.031 H (1.003-1.030) Urine Protein <15 mg/dl (Negative) mg/dL Urine Glucose (UA) >=500 (Negative) mg/dL Urine Ketones 80 (Negative) mg/dL Urine Blood Neg (Negative) Urine Nitrite Neg (Negative) Urine Bilirubin Neg (Negative) Urine Urobilinogen < 2.0 (<2.0) mg/dL Ur Leukocyte Esterase Neg (Negative) Urine WBC (Auto) 2.0 (0.0-6.0) /HPF Urine RBC (Auto) 3.0 (0.0-6.0) /HPF U Epithel Cells (Auto) 2.0 (0-13.0) /HPF Urine Mucus Few /HPF Urine HCG, Qual Negative (Negative) - Medical Decision Making Results discussed with patient IV insulin given Critical Care Time: Yes Critical care time in (mins) excluding proc time.: 35 Critical care attestation.: If time is entered above; I have spent that time in minutes in the direct care of this critically ill patient, excluding procedure time. ED Disposition Clinical Impression: Hyperglycemia, Diabetes mellitus Disposition: DC-01 TO HOME OR SELFCARE Is pt being admited?: No Does the pt Need Aspirin: No Condition: Stable Instructions: Diabetes Mellitus Type 2 in Adults (ED) Additional Instructions: RETURN IF WORSE Prescriptions: metFORMIN [Glucophage] 500 mg PO QDAY #30 tab Referrals: PRIMARY CARE, [Primary Care Provider] - 3-5 Days [facility] [Provider Group] - 3-5 Days [facility] [Provider Group] - 3-5 Days [facility] [Outside] - 3-5 Days [facility] [Provider Group] - 3-5 Days Time of Disposition: 12:35
[2019-02-03] MEDS ORDERED: ZOFRAN IV ONE (11:37)
[2019-02-03] MEDS ORDERED: ZITHROMAX PO ONE (11:37)
[2019-02-03] MEDS ORDERED: FLAGYL PO ONE (11:38)
[2019-02-03] MEDS ORDERED: HumuLIN R IV ONE (11:39)
[2019-02-03] MEDS ORDERED: DIFLUCAN PO ONE (12:38)
[2019-02-03] MEDS: HumuLIN R IV ONE ×2 (12:46→12:47)
[2019-02-03 14:58] VITALS: BP 99/79
== END 2019-02-03 14:15 | disposition home or self-care (01) ==
LOC: ED 07:56
DX: E11.65 Type 2 diabetes mellitus with hyperglycemia (principal); B37.9 Candidiasis, unspecified; F12.10 Cannabis abuse, uncomplicated; Z90.49 Acquired absence of other specified parts of digestive tract; Z88.0 Allergy status to penicillin
CPT/HCPCS: 36415; 80053; 81001; 81025; 82962; 85027; 96361; 96374; 96375; 99283; J2405; J7030; J1815

== ENCOUNTER 2019-09-12 13:43 | Inpatient (IN) | payer OTHER ==
--- NOTE | 2019-09-12 13:52 | Emergency Department Report ---
Blank Doc - Documentation Documentation: 33-year-old female that presents with uncontrolled DM. Symptoms include weakn ess, dizziness, and body aches. This initial assessment/diagnostic orders/clinical plan/treatment(s) is/are subject to change based on patient's health status, clinical progression and re- assessment by fellow clinical providers in the ED. Further treatment and workup at subsequent clinical providers discretion. Patient/guardians urged not to elope from the ED as their condition may be serious if not clinically assessed and managed. Initial orders include: 1- Patient sent to [facility] for further evaluation and treatment 2- labs 3- UA
[2019-09-12 14:30] LABS: Basophils % (Auto) 0.4 % (0.0-1.8); Eosinophils % (Auto) 0.4 % (0.0-4.3); Hematocrit 42.9 % (30.3-42.9); Hemoglobin 14.2 gm/dl (10.1-14.3); Lymphocytes # (Auto) 1.9 K/mm3 (1.2-5.4); Mean Corpuscular HGB Conc 33 % (30-34); Mean Corpuscular Volume 99 fl (79-97); Monocytes # (Auto) 0.7 K/mm3 (0.0-0.8); Monocytes % (Auto) 6.9 % (0.0-7.3); Platelet Count 240 K/mm3 (140-440); Red Blood Count 4.33 M/mm3 (3.65-5.03)
[2019-09-12 14:44] LABS: Alanine Aminotransferase 11 units/L (7-56); Albumin 4.2 g/dL (3.9-5); BUN/Creatinine Ratio 9; Blood Urea Nitrogen 8 mg/dL (7-17); Calcium 9.4 mg/dL (8.4-10.2); Hemolysis Index 9
[2019-09-12] MEDS ORDERED: DEXTROSE 50% IN WATER (25GM) 50 ML SYRINGE IV PRN (15:20)
[2019-09-12] MEDS ORDERED: SODIUM CHLORIDE 0.9% 1000 ML 1,000 ML IV ONE ×2 (15:22)
[2019-09-12] MEDS ORDERED: CLINDAMYCIN 600 MG/50 mL 600 MG/50 ML BAG IV ONE (15:42)
[2019-09-12] MEDS ORDERED: INSULIN REGULAR, HUMAN 100 UNITS/1 ML IV ONE (15:46)
--- NOTE | 2019-09-12 15:50 | Emergency Department Report ---
ED General Adult HPI - General Chief complaint: Hyperglycemia Stated complaint: HBS/YEAST INFECTION Time Seen by Provider: 09/12/19 13:50 Source: patient Mode of arrival: Ambulatory Limitations: No Limitations - History of Present Illness Initial comments: 33-year-old female the past medical history diabetes and. Cholecystectomy presents to the hospital complaining of hyperglycemia for the past 6 days. Patient checked her sugar 3 times a day and only take her metformin if her sugar is greater than 150. She is prescribed metformin 500 mg twice a day. She denies ever being on insulin despite past medical record here stating she was prescribed insulin last year. Patient had one episode of nausea vomiting several days ago. She complains of vaginal discharge similar to previous yeast infection and a boil to her right buttock area. No complaints of fever. Positive body aches. Increased urinary frequency and thirst reported without dysuria. - Related Data Previous Rx's Medication Instructions Recorded Last Taken Type Ibuprofen [Motrin] 600 mg PO Q8H PRN #30 tablet 12/25/17 1 Month Ago Rx ~01/15/18 HYDROcodone/APAP 5-325 [[place] 1 - 2 each PO Q4HR PRN #30 tablet 02/16/18 Unknown Rx 5/325] Glimepiride [Amaryl] 2 mg PO QAM #30 tablet 10/07/18 Unknown Rx Insulin Glargine,Hum.rec.anlog 25 unit SQ QAM #1 vial 10/07/18 Unknown Rx [Lantus Solostar] Insulin Regular, Human [Novolin R] 5 units SUB-Q AC #1 vial 10/07/18 Unknown Rx Fluconazole [Diflucan TAB] 150 mg PO DAILY #2 tablet 01/01/19 Unknown Rx metFORMIN [Glucophage] 500 mg PO QDAY #30 tab 02/03/19 Unknown Rx Allergies Allergy/AdvReac Type Severity Reaction Status Date / Time Penicillins Allergy Hives Verified 02/14/18 06:48 ED Review of Systems ROS: Stated complaint: HBS/YEAST INFECTION Other details as noted in HPI Comment: All other systems reviewed and negative ED Past Medical Hx - Past Medical History Hx Congestive Heart Failure: No Hx Diabetes: Yes (new onset diabetes) Hx Asthma: No Hx COPD: No Hx HIV: No - Surgical History Past Surgical History?: Yes Hx Cholecystectomy: Yes - Social History Smoking Status: Current Every Day Smoker Substance Use Type: Alcohol - Medications Home Medications: Home Medications Medication Instructions Recorded Confirmed Last Taken Type Ibuprofen [Motrin] 600 mg PO Q8H PRN #30 tablet 12/25/17 02/14/18 1 Month Ago Rx ~01/15/18 HYDROcodone/APAP 5-325 [[place] 1 - 2 each PO Q4HR PRN #30 tablet 02/16/18 Unknown Rx 5/325] Glimepiride [Amaryl] 2 mg PO QAM #30 tablet 10/07/18 Unknown Rx Insulin Glargine,Hum.rec.anlog 25 unit SQ QAM #1 vial 10/07/18 Unknown Rx [Lantus Solostar] Insulin Regular, Human [Novolin R] 5 units SUB-Q AC #1 vial 10/07/18 Unknown Rx Fluconazole [Diflucan TAB] 150 mg PO DAILY #2 tablet 01/01/19 Unknown Rx metFORMIN [Glucophage] 500 mg PO QDAY #30 tab 02/03/19 Unknown Rx ED Physical Exam - General Limitations: No Limitations - Other Other exam information: General: No acute distress Head: Atraumatic Eyes: normal appearance ENT: Moist mucous membranes Neck: Normal appearance, no midline tenderness, swollen submental lymph node Chest: Clear to auscultation bilaterally CV: Regular rate and rhythm Abdomen: Soft, normal bowel sounds, nontender, nondistended, no rebound or guarding Back: Normal inspection Extremity: Normal inspection infection, full range of motion Neuro: Alert O x 3, no facial asymmetry, speech clear, no gross motor sensory deficit Psych: Appropriate behavior Skin: Right buttock abscess at the gluteal fold with active purulent drainage. ED Course Vital Signs 09/12/19 13:51 Temperature 98.2 F Pulse Rate 96 H Respiratory 16 Rate Blood Pressure 126/72 O2 Sat by Pulse 100 Oximetry ED Medical Decision Making - Lab Data Result diagrams: 09/12/19 14:02 09/12/19 14:02 Lab Results 09/12/19 09/12/19 09/12/19 Range/Units 13:58 14:02 14:02 WBC 10.5 (4.5-11.0) K/mm3 RBC 4.33 (3.65-5.03) M/mm3 Hgb 14.2 (10.1-14.3) gm/dl Hct 42.9 (30.3-42.9) % MCV 99 H (79-97) fl MCH 33 H (28-32) pg MCHC 33 (30-34) % RDW 14.0 (13.2-15.2) % Plt Count 240 (140-440) K/mm3 Lymph % (Auto) 18.0 (13.4-35.0) % [place] % (Auto) 6.9 (0.0-7.3) % Eos % (Auto) 0.4 (0.0-4.3) % Baso % (Auto) 0.4 (0.0-1.8) % Lymph # 1.9 (1.2-5.4) K/mm3 [place] # 0.7 (0.0-0.8) K/mm3 Eos # 0.0 (0.0-0.4) K/mm3 Baso # 0.0 (0.0-0.1) K/mm3 Seg Neutrophils % 74.3 H (40.0-70.0) % Seg Neutrophils # 7.8 H (1.8-7.7) K/mm3 VBG pH (7.320-7.420) Sodium 120 L (137-145) mmol/L Potassium 4.4 (3.6-5.0) mmol/L Chloride 81.4 L (98-107) mmol/L Carbon Dioxide 18 L (22-30) mmol/L Anion Gap 25 mmol/L BUN 8 (7-17) mg/dL Creatinine 0.9 (0.7-1.2) mg/dL Estimated GFR > 60 ml/min BUN/Creatinine Ratio 9 % Glucose 763 H* (65-100) mg/dL POC Glucose > 500 H (70-105) Calcium 9.4 (8.4-10.2) mg/dL Total Bilirubin 0.40 (0.1-1.2) mg/dL AST 13 (5-40) units/L ALT 11 (7-56) units/L Alkaline Phosphatase 139 H (35-129) units/L Total Protein 7.7 (6.3-8.2) g/dL Albumin 4.2 (3.9-5) g/dL Albumin/Globulin Ratio 1.2 % HCG, Qual (Negative) 09/12/19 09/12/19 Range/Units 14:02 14:02 WBC (4.5-11.0) K/mm3 RBC (3.65-5.03) M/mm3 Hgb (10.1-14.3) gm/dl Hct (30.3-42.9) % MCV (79-97) fl MCH (28-32) pg MCHC (30-34) % RDW (13.2-15.2) % Plt Count (140-440) K/mm3 Lymph % (Auto) (13.4-35.0) % [place] % (Auto) (0.0-7.3) % Eos % (Auto) (0.0-4.3) % Baso % (Auto) (0.0-1.8) % Lymph # (1.2-5.4) K/mm3 [place] # (0.0-0.8) K/mm3 Eos # (0.0-0.4) K/mm3 Baso # (0.0-0.1) K/mm3 Seg Neutrophils % (40.0-70.0) % Seg Neutrophils # (1.8-7.7) K/mm3 VBG pH 7.301 L (7.320-7.420) Sodium (137-145) mmol/L Potassium (3.6-5.0) mmol/L Chloride (98-107) mmol/L Carbon Dioxide (22-30) mmol/L Anion Gap mmol/L BUN (7-17) mg/dL Creatinine (0.7-1.2) mg/dL Estimated GFR ml/min BUN/Creatinine Ratio % Glucose (65-100) mg/dL POC Glucose (70-105) Calcium (8.4-10.2) mg/dL Total Bilirubin (0.1-1.2) mg/dL AST (5-40) units/L ALT (7-56) units/L Alkaline Phosphatase (35-129) units/L Total Protein (6.3-8.2) g/dL Albumin (3.9-5) g/dL Albumin/Globulin Ratio % HCG, Qual Negative (Negative) - Medical Decision Making diflucan po for yeast clindamycin for abscess (actively draining) Dka, insulin bolus + drip ordered NS bolus pt to be admitted to hospitalist service - Differential Diagnosis DKA, HHNK, abscess, cellulitis, infection Critical Care Time: No Critical care attestation.: If time is entered above; I have spent that time in minutes in the direct care of this critically ill patient, excluding procedure time. ED Disposition Clinical Impression: Diabetic ketoacidosis, Abscess of buttock, right, Noncompliance with medication regimen Disposition: TO HOME OR SELFCARE Is pt being admited?: No Does the pt Need Aspirin: No Condition: Stable Time of Disposition: 15:53 (Dr Alvarado/hosp)
[2019-09-12] MEDS ORDERED: INSULIN REGULAR, HUMAN 100 UNITS in SODIUM CHLORIDE 0.9% 99 ML IV SCH (16:00)
[2019-09-12 16:34] LABS: Bilirubin,Urine NEG (Negative); Blood,Urine NEG (Negative); Color,Urine Colorless (Yellow); Mucus,Urine FEW /HPF; Protein,Urine <15 mg/dL mg/dL (Negative); RBC,Urine < 1.0 /HPF (0.0-6.0); Urobilinogen,Urine < 2.0 mg/dL (<2.0)
[2019-09-12] MEDS ORDERED: FLUCONAZOLE 200 MG TAB PO ONE (17:00)
[2019-09-12] MEDS: FLUCONAZOLE 100 MG TAB PO ONE ×2 (17:23→17:24)
[2019-09-12] MEDS ORDERED: D5W/0.45% NACL/KCL 20 MEQ 20 MEQ/1,000 ML BAG IV ONE (17:49)
[2019-09-12] MEDS: D5W/0.45% NACL/KCL 20 MEQ 20 MEQ/1,000 ML BAG IV SCH (18:51)
[2019-09-12] MEDS ORDERED: ACETAMINOPHEN 325 MG TAB PO ONE (18:52)
[2019-09-12 18:54] LABS: BUN/Creatinine Ratio 10; Blood Urea Nitrogen 7 mg/dL (7-17); Calcium 8.4 mg/dL (8.4-10.2); Hemolysis Index 10
[2019-09-12] MEDS ORDERED: ACETAMINOPHEN 325 MG TAB ONE (18:58)
[2019-09-12 22:10] LABS: BUN/Creatinine Ratio 12; Blood Urea Nitrogen 6 mg/dL (7-17); Hemolysis Index 14
[2019-09-12 23:45] LABS: BUN/Creatinine Ratio 10; Blood Urea Nitrogen 5 mg/dL (7-17); Calcium 8.5 mg/dL (8.4-10.2); Hemolysis Index 5
--- NOTE | 2019-09-13 00:27 | History and Physical Report ---
History of Present Illness Date of examination: 09/12/19 Date of admission: 09/12/19 15:53 Chief complaint: Nausea vomiting for 1 day History of present illness: 33-year-old female with history of diabetes comes in for counseling for nausea and vomiting since yesterday. Patient also has a boil on her right buttock area. Patient is not taking her insulin and medications regularly. Patient also complains of vaginal yeast infection. No fever or chills. Feels weak. Past Medical History Diabetes: Yes (new onset diabetes) Surgical History Past Surgical History?: Yes Cholecystectomy: Yes Social History Smoking Status: Current Every Day Smoker Substance Use Type: Alcohol Family History Htn Medications Home Medications: Home Medications Medication Instructions Recorded Confirmed Last Taken Type Ibuprofen [Motrin] 600 mg PO Q8H PRN #30 tablet 12/25/17 02/14/18 1 Month Ago Rx ~01/15/18 HYDROcodone/APAP 5-325 [[place] 1 - 2 each PO Q4HR PRN #30 tablet 02/16/18 Unknown Rx 5/325] Glimepiride [Amaryl] 2 mg PO QAM #30 tablet 10/07/18 Unknown Rx Insulin Glargine,Hum.rec.anlog 25 unit SQ QAM #1 vial 10/07/18 Unknown Rx [Lantus Solostar] Insulin Regular, Human [Novolin R] 5 units SUB-Q AC #1 vial 10/07/18 Unknown Rx Fluconazole [Diflucan TAB] 150 mg PO DAILY #2 tablet 01/01/19 Unknown Rx metFORMIN [Glucophage] 500 mg PO QDAY #30 tab 02/03/19 Unknown Rx Review of Systems ROS: Stated complaint: HBS/YEAST INFECTION Other details as noted in HPI Comment: All other systems reviewed and negative Medications and Allergies Allergies Allergy/AdvReac Type Severity Reaction Status Date / Time Penicillins Allergy Hives Verified 02/14/18 06:48 Home Medications Medication Instructions Recorded Confirmed Last Taken Type metFORMIN [Glucophage] 500 mg PO BID 09/12/19 09/12/19 Unknown History Active Meds: Active Medications Dextrose (D50w (25gm) Syringe) 0 ml IV Q30MIN PRN; Protocol PRN Reason: Hypoglycemia Insulin Human Regular 100 (units/ Sodium Chloride) 100 mls @ 1 mls/hr IV TITR ROHAN; Protocol Last Titration: 09/13/19 00:14 Dose: 4 units/hr, 4 mls/hr Documented by: Potassium Chloride/Dextrose/Sod Cl (D5w/0.45% Nacl/Kcl 20 Meq) 20 meq in 1,000 mls @ 125 mls/hr IV DIRECT ROHAN Last Admin: 09/12/19 18:51 Dose: 125 mls/hr Documented by: Exam - Constitutional Vitals: Temp Pulse Resp BP Pulse Ox 98.2 F 89 18 106/69 98 09/12/19 20:24 09/12/19 20:24 09/12/19 20:24 09/12/19 20:24 09/12/19 20:24 General appearance: Present: no acute distress, well-nourished - EENT Eyes: Present: PERRL ENT: hearing intact, clear oral mucosa - Neck Neck: Present: supple, normal ROM - Respiratory Respiratory effort: normal Respiratory: bilateral: CTA - Cardiovascular Heart rate: 86 Rhythm: regular Heart Sounds: Present: S1 & S2. Absent: rub, click - Extremities Extremities: no ischemia, pulses intact, pulses symmetrical, No edema Peripheral Pulses: within normal limits - Abdominal General gastrointestinal: Present: soft, non-tender, non-distended, normal bowel sounds Female genitourinary: Present: normal - Rectal Rectal Exam: deferred - Integumentary Integumentary: Present: clear, warm, dry - Musculoskeletal Musculoskeletal: gait normal, strength equal bilaterally - Psychiatric Psychiatric: appropriate mood/affect, intact judgment & insight - Neurologic Neurologic: CNII-XII intact, moves all extremities - Allied Health Allied health notes reviewed: nursing, case management Results - Labs CBC & Chem 7: 09/12/19 14:02 09/12/19 23:05 Labs: Laboratory Last Values WBC 10.5 K/mm3 (4.5-11.0) 09/12/19 14:02 RBC 4.33 M/mm3 (3.65-5.03) 09/12/19 14:02 Hgb 14.2 gm/dl (10.1-14.3) 09/12/19 14:02 Hct 42.9 % (30.3-42.9) 09/12/19 14:02 MCV 99 fl (79-97) H 09/12/19 14:02 MCH 33 pg (28-32) H 09/12/19 14:02 MCHC 33 % (30-34) 09/12/19 14:02 RDW 14.0 % (13.2-15.2) 09/12/19 14:02 Plt Count 240 K/mm3 (140-440) 09/12/19 14:02 Lymph % (Auto) 18.0 % (13.4-35.0) 09/12/19 14:02 [place] % (Auto) 6.9 % (0.0-7.3) 09/12/19 14:02 Eos % (Auto) 0.4 % (0.0-4.3) 09/12/19 14:02 Baso % (Auto) 0.4 % (0.0-1.8) 09/12/19 14:02 Lymph # 1.9 K/mm3 (1.2-5.4) 09/12/19 14:02 [place] # 0.7 K/mm3 (0.0-0.8) 09/12/19 14:02 Eos # 0.0 K/mm3 (0.0-0.4) 09/12/19 14:02 Baso # 0.0 K/mm3 (0.0-0.1) 09/12/19 14:02 Seg Neutrophils % 74.3 % (40.0-70.0) H 09/12/19 14:02 Seg Neutrophils # 7.8 K/mm3 (1.8-7.7) H 09/12/19 14:02 VBG pH 7.301 (7.320-7.420) L 09/12/19 14:02 Sodium 131 mmol/L (137-145) L 09/12/19 23:05 Potassium 3.6 mmol/L (3.6-5.0) 09/12/19 23:05 Chloride 104.7 mmol/L (98-107) 09/12/19 23:05 Carbon Dioxide 21 mmol/L (22-30) L 09/12/19 23:05 Anion Gap 9 mmol/L 09/12/19 23:05 BUN 5 mg/dL (7-17) L 09/12/19 23:05 Creatinine 0.5 mg/dL (0.7-1.2) L 09/12/19 23:05 Estimated GFR > 60 ml/min 09/12/19 23:05 BUN/Creatinine Ratio 10 % 09/12/19 23:05 Glucose 178 mg/dL (65-100) H 09/12/19 23:05 POC Glucose 176 (70-105) H 09/12/19 23:16 Calcium 8.5 mg/dL (8.4-10.2) 09/12/19 23:05 Phosphorus 2.40 mg/dL (2.5-4.5) L 09/12/19 18:00 Magnesium 1.60 mg/dL (1.7-2.3) L 09/12/19 18:00 Total Bilirubin 0.40 mg/dL (0.1-1.2) 09/12/19 14:02 AST 13 units/L (5-40) 09/12/19 14:02 ALT 11 units/L (7-56) 09/12/19 14:02 Alkaline Phosphatase 139 units/L (35-129) H 09/12/19 14:02 Total Protein 7.7 g/dL (6.3-8.2) 09/12/19 14:02 Albumin 4.2 g/dL (3.9-5) 09/12/19 14:02 Albumin/Globulin Ratio 1.2 % 09/12/19 14:02 HCG, Qual Negative (Negative) 09/12/19 14:02 Urine Color Colorless (Yellow) 09/12/19 16:10 Urine Turbidity Clear (Clear) 09/12/19 16:10 Urine pH 6.0 (5.0-7.0) 09/12/19 16:10 Ur Specific [place] 1.025 (1.003-1.030) 09/12/19 16:10 Urine Protein <15 mg/dl mg/dL (Negative) 09/12/19 16:10 Urine Glucose (UA) >=500 mg/dL (Negative) 09/12/19 16:10 Urine Ketones 20 mg/dL (Negative) 09/12/19 16:10 Urine Blood Neg (Negative) 09/12/19 16:10 Urine Nitrite Neg (Negative) 09/12/19 16:10 Urine Bilirubin Neg (Negative) 09/12/19 16:10 Urine Urobilinogen < 2.0 mg/dL (<2.0) 09/12/19 16:10 Ur Leukocyte Esterase Neg (Negative) 09/12/19 16:10 Urine WBC (Auto) 1.0 /HPF (0.0-6.0) 09/12/19 16:10 Urine RBC (Auto) < 1.0 /HPF (0.0-6.0) 09/12/19 16:10 U Epithel Cells (Auto) < 1.0 /HPF (0-13.0) 09/12/19 16:10 Urine Mucus Few /HPF 09/12/19 16:10 Assessment and Plan Assessment and plan: Critical care time 35 minutes Advance Directives: Yes (full code) VTE prophylaxis?: Chemical Plan of care discussed with patient/family: Yes - Patient Problems (1) Diabetic ketoacidosis Current Visit: Yes Status: Acute Qualifiers: Diabetes mellitus type: type 1 Plan to address problem: DKA protocol IV insulin IV fluids (2) Abscess of buttock, right Current Visit: Yes Status: Acute Plan to address problem: IV antibiotics' Surgical consult (3) Hyponatremia Current Visit: Yes Status: Acute Plan to address problem: Should resolve with correction of blood glucose level (4) DVT prophylaxis Current Visit: No Status: Acute Plan to address problem: Heparin 5000 subcutaneous every 12 and GI prophylaxis
[2019-09-13] MEDS: CLINDAMYCIN 600 MG/50 mL 600 MG/50 ML BAG IV SCH ×3 (01:25→16:19)
[2019-09-13] MEDS ORDERED: D5W/0.45% NACL/KCL 20 MEQ 20 MEQ/1,000 ML BAG IV ONE (02:33)
[2019-09-13 04:38] LABS: BUN/Creatinine Ratio 10; Blood Urea Nitrogen 4 mg/dL (7-17); Calcium 8.5 mg/dL (8.4-10.2); Hemolysis Index 8
[2019-09-13] MEDS ORDERED: DEXTROSE 50% IN WATER (25GM) 50 ML SYRINGE IV PRN ×2 (05:02→20:01)
[2019-09-13] MEDS ORDERED: INSULIN GLARGINE 100 UNITS/ML SUB-Q ONE (05:06)
[2019-09-13] MEDS ORDERED: INSULIN LISPRO 100 UNIT/ML SUB-Q ONE ×3 (07:52→20:02)
[2019-09-13] MEDS: INSULIN LISPRO 100 UNIT/ML SUB-Q SCH ×4 (07:57→22:44)
[2019-09-13] MEDS ORDERED: CLINDAMYCIN 600 MG/50 mL 600 MG/50 ML BAG IV ONE (09:26)
[2019-09-13 10:29] LABS: BUN/Creatinine Ratio 7; Blood Urea Nitrogen 4 mg/dL (7-17); Calcium 9.3 mg/dL (8.4-10.2); Hemolysis Index 11
--- NOTE | 2019-09-13 11:41 | Progress Note ---
Assessment and Plan Assessment and plan: DKA. Resolved. Patient will be transitioned from IV insulin drip to long- acting Lantus 10 units. Patient previously with metformin 500 mg twice a day at home. Patient will be transferred to the floor. Right gluteal abscess. Continue IV antibiotics. Surgical consultation pending. Hyponatremia. Resolved. History Interval history: 33-year-old female with history of diabetes comes in for counseling for nausea and vomiting since yesterday. Patient also has a boil on her right buttock area. Patient is not taking her insulin and medications regularly. Patient also complains of vaginal yeast infection. No fever or chills. Feels weak. Hospitalist Physical - Constitutional Vitals: Temp Pulse Resp BP Pulse Ox 98.3 F 94 H 16 100/58 98 09/13/19 05:30 09/13/19 10:45 09/13/19 10:45 09/13/19 10:45 09/13/19 10:45 General appearance: Present: no acute distress, well-nourished - EENT Eyes: Present: PERRL, EOM intact ENT: hearing intact, clear oral mucosa, dentition normal - Neck Neck: Present: supple, normal ROM - Respiratory Respiratory effort: normal Respiratory: bilateral: CTA - Cardiovascular Rhythm: regular Heart Sounds: Present: S1 & S2. Absent: gallop, rub - Extremities Extremities: no ischemia, No edema, Full ROM - Abdominal General gastrointestinal: soft, non-tender, non-distended, normal bowel sounds - Integumentary Integumentary: Present: warm (right buttocks tender to palpation), dry - Neurologic Neurologic: CNII-XII intact, moves all extremities Results - Labs CBC & Chem 7: 09/12/19 14:02 09/13/19 09:59 Labs: Laboratory Last Values WBC 10.5 K/mm3 (4.5-11.0) 09/12/19 14:02 RBC 4.33 M/mm3 (3.65-5.03) 09/12/19 14:02 Hgb 14.2 gm/dl (10.1-14.3) 09/12/19 14:02 Hct 42.9 % (30.3-42.9) 09/12/19 14:02 MCV 99 fl (79-97) H 09/12/19 14:02 MCH 33 pg (28-32) H 09/12/19 14:02 MCHC 33 % (30-34) 09/12/19 14:02 RDW 14.0 % (13.2-15.2) 09/12/19 14:02 Plt Count 240 K/mm3 (140-440) 09/12/19 14:02 Lymph % (Auto) 18.0 % (13.4-35.0) 09/12/19 14:02 [place] % (Auto) 6.9 % (0.0-7.3) 09/12/19 14:02 Eos % (Auto) 0.4 % (0.0-4.3) 09/12/19 14:02 Baso % (Auto) 0.4 % (0.0-1.8) 09/12/19 14:02 Lymph # 1.9 K/mm3 (1.2-5.4) 09/12/19 14:02 [place] # 0.7 K/mm3 (0.0-0.8) 09/12/19 14:02 Eos # 0.0 K/mm3 (0.0-0.4) 09/12/19 14:02 Baso # 0.0 K/mm3 (0.0-0.1) 09/12/19 14:02 Seg Neutrophils % 74.3 % (40.0-70.0) H 09/12/19 14:02 Seg Neutrophils # 7.8 K/mm3 (1.8-7.7) H 09/12/19 14:02 VBG pH 7.301 (7.320-7.420) L 09/12/19 14:02 Sodium 135 mmol/L (137-145) L 09/13/19 09:59 Potassium 3.8 mmol/L (3.6-5.0) 09/13/19 09:59 Chloride 98.5 mmol/L (98-107) 09/13/19 09:59 Carbon Dioxide 21 mmol/L (22-30) L 09/13/19 09:59 Anion Gap 19 mmol/L 09/13/19 09:59 BUN 4 mg/dL (7-17) L 09/13/19 09:59 Creatinine 0.6 mg/dL (0.7-1.2) L 09/13/19 09:59 Estimated GFR > 60 ml/min 09/13/19 09:59 BUN/Creatinine Ratio 7 % 09/13/19 09:59 Glucose 323 mg/dL (65-100) H 09/13/19 09:59 POC Glucose 384 (70-105) H 09/13/19 11:44 Calcium 9.3 mg/dL (8.4-10.2) 09/13/19 09:59 Phosphorus 2.40 mg/dL (2.5-4.5) L 09/12/19 18:00 Magnesium 1.60 mg/dL (1.7-2.3) L 09/12/19 18:00 Total Bilirubin 0.40 mg/dL (0.1-1.2) 09/12/19 14:02 AST 13 units/L (5-40) 09/12/19 14:02 ALT 11 units/L (7-56) 09/12/19 14:02 Alkaline Phosphatase 139 units/L (35-129) H 09/12/19 14:02 Total Protein 7.7 g/dL (6.3-8.2) 09/12/19 14:02 Albumin 4.2 g/dL (3.9-5) 09/12/19 14:02 Albumin/Globulin Ratio 1.2 % 09/12/19 14:02 HCG, Qual Negative (Negative) 09/12/19 14:02 Urine Color Colorless (Yellow) 09/12/19 16:10 Urine Turbidity Clear (Clear) 09/12/19 16:10 Urine pH 6.0 (5.0-7.0) 09/12/19 16:10 Ur Specific [place] 1.025 (1.003-1.030) 09/12/19 16:10 Urine Protein <15 mg/dl mg/dL (Negative) 09/12/19 16:10 Urine Glucose (UA) >=500 mg/dL (Negative) 09/12/19 16:10 Urine Ketones 20 mg/dL (Negative) 09/12/19 16:10 Urine Blood Neg (Negative) 09/12/19 16:10 Urine Nitrite Neg (Negative) 09/12/19 16:10 Urine Bilirubin Neg (Negative) 09/12/19 16:10 Urine Urobilinogen < 2.0 mg/dL (<2.0) 09/12/19 16:10 Ur Leukocyte Esterase Neg (Negative) 09/12/19 16:10 Urine WBC (Auto) 1.0 /HPF (0.0-6.0) 09/12/19 16:10 Urine RBC (Auto) < 1.0 /HPF (0.0-6.0) 09/12/19 16:10 U Epithel Cells (Auto) < 1.0 /HPF (0-13.0) 09/12/19 16:10 Urine Mucus Few /HPF 09/12/19 16:10 Active Medications - Current Medications Current Medications: Generic Name Dose Route Start Last Admin Trade Name Freq PRN Reason Stop Dose Admin Dextrose 50 ml 09/13/19 05:02 D50w (25gm) Syringe IV Q30MIN PRN Hypoglycemia Protocol Potassium Chloride/Dextrose/Sod Cl 20 meq in 1,000 mls @ 125 mls/hr 09/12/19 19:00 09/12/19 18:51 D5w/0.45% Nacl/Kcl 20 Meq IV 125 mls/hr DIRECT ROHAN Administration Clindamycin HCl 600 mg in 50 mls @ 100 mls/hr 09/13/19 01:00 09/13/19 09:28 Cleocin 600 Mg/50 Ml IV 100 mls/hr Q8H ROHAN Administration Protocol Insulin Glargine 10 units 09/14/19 08:00 Lantus SUB-Q QAMDIAB ROHAN Insulin Human Lispro 0 unit 09/13/19 07:30 09/13/19 07:57 Humalog SUB-Q 5 unit ACHS ROHAN Administration Protocol
--- NOTE | 2019-09-13 11:49 | Consultation ---
History of Present Illness Consult date: 09/13/19 Reason for consult: other (buttock abscess) Requesting physician: PAULINO BAHENA Chief complaint: right buttock pain - History of present illness History of present illness: 33yo F with poorly controlled DM presents with N/V. Pt found to also have right buttock abscess. Gen Surg consulted for evaluation and management. Pt reports that it has been there since Monday. She has tried warm baths, but it did not help. Was squeezed today and it started draining. Still has same level of pain. Denies F/C. Never has this before. Worried about scarring in that area. Past History Past Medical History: diabetes Past Surgical History: cholecystectomy Social history: smoking, alcohol abuse Family history: no significant family history Medications and Allergies Allergies Allergy/AdvReac Type Severity Reaction Status Date / Time Penicillins Allergy Hives Verified 02/14/18 06:48 Home Medications Medication Instructions Recorded Confirmed Last Taken Type metFORMIN [Glucophage] 500 mg PO BID 09/12/19 09/12/19 Unknown History Active Meds: Active Medications Dextrose (D50w (25gm) Syringe) 50 ml IV Q30MIN PRN; Protocol PRN Reason: Hypoglycemia Potassium Chloride/Dextrose/Sod Cl (D5w/0.45% Nacl/Kcl 20 Meq) 20 meq in 1,000 mls @ 125 mls/hr IV DIRECT ROHAN Last Admin: 09/12/19 18:51 Dose: 125 mls/hr Documented by: Clindamycin HCl (Cleocin 600 Mg/50 Ml) 600 mg in 50 mls @ 100 mls/hr IV Q8H ROHAN; Protocol Last Admin: 09/13/19 09:28 Dose: 100 mls/hr Documented by: Insulin Glargine (Lantus) 10 units SUB-Q QAMDIAB ROHAN Insulin Human Lispro (Humalog) 0 unit SUB-Q ACHS ROHAN; Protocol Last Admin: 09/13/19 07:57 Dose: 5 unit Documented by: Review of Systems - Constitutional no fever, no chills, no chronic pain - Cardiovascular no chest pain, no shortness of breath - Respiratory no cough - Gastrointestinal nausea, vomiting, no abdominal pain - Integumentary boils Exam Vital Signs Temp Pulse Resp BP Pulse Ox 98.2 F 96 H 16 126/72 100 09/12/19 13:51 09/12/19 13:51 09/12/19 13:51 09/12/19 13:51 09/12/19 13:51 - General physical appearance Positive: no distress, no pain - Eyes Positive: normal occular movement - Respiratory Positive: normal expansion, normal respiratory effort - Cardiovascular Rhythm: regular - Integumentary other (Induration and tenderness noted on medial aspect of right buttock. No erythema. No increased warmth. small area of fluctuance?) - Neurologic Neurologic: alert and oriented to time, place and person, motor strength and sensation are grossly intact - Psychiatric Psychiatric: appropriate mood/affect, intact judgment & insight, cooperative Results - Labs 09/12/19 14:02 09/13/19 09:59 Abnormal lab results 09/12/19 09/12/19 09/12/19 Range/Units 13:58 14:02 14:02 MCV 99 H (79-97) fl MCH 33 H (28-32) pg Seg Neutrophils % 74.3 H (40.0-70.0) % Seg Neutrophils # 7.8 H (1.8-7.7) K/mm3 VBG pH (7.320-7.420) Sodium 120 L (137-145) mmol/L Potassium (3.6-5.0) mmol/L Chloride 81.4 L (98-107) mmol/L Carbon Dioxide 18 L (22-30) mmol/L BUN (7-17) mg/dL Creatinine (0.7-1.2) mg/dL Glucose 763 H* (65-100) mg/dL POC Glucose > 500 H (70-105) Phosphorus (2.5-4.5) mg/dL Magnesium (1.7-2.3) mg/dL Alkaline Phosphatase 139 H (35-129) units/L 09/12/19 09/12/19 09/12/19 Range/Units 14:02 16:42 17:47 MCV (79-97) fl MCH (28-32) pg Seg Neutrophils % (40.0-70.0) % Seg Neutrophils # (1.8-7.7) K/mm3 VBG pH 7.301 L (7.320-7.420) Sodium (137-145) mmol/L Potassium (3.6-5.0) mmol/L Chloride (98-107) mmol/L Carbon Dioxide (22-30) mmol/L BUN (7-17) mg/dL Creatinine (0.7-1.2) mg/dL Glucose (65-100) mg/dL POC Glucose 487 H 245 H (70-105) Phosphorus (2.5-4.5) mg/dL Magnesium (1.7-2.3) mg/dL Alkaline Phosphatase (35-129) units/L 09/12/19 09/12/19 09/12/19 Range/Units 18:00 18:43 19:57 MCV (79-97) fl MCH (28-32) pg Seg Neutrophils % (40.0-70.0) % Seg Neutrophils # (1.8-7.7) K/mm3 VBG pH (7.320-7.420) Sodium 132 L D (137-145) mmol/L Potassium 3.5 L D (3.6-5.0) mmol/L Chloride (98-107) mmol/L Carbon Dioxide 16 L (22-30) mmol/L BUN (7-17) mg/dL Creatinine (0.7-1.2) mg/dL Glucose 240 H (65-100) mg/dL POC Glucose 228 H 201 H (70-105) Phosphorus 2.40 L (2.5-4.5) mg/dL Magnesium 1.60 L (1.7-2.3) mg/dL Alkaline Phosphatase (35-129) units/L 09/12/19 09/12/19 09/12/19 Range/Units 21:10 21:34 23:05 MCV (79-97) fl MCH (28-32) pg Seg Neutrophils % (40.0-70.0) % Seg Neutrophils # (1.8-7.7) K/mm3 VBG pH (7.320-7.420) Sodium 131 L 131 L (137-145) mmol/L Potassium (3.6-5.0) mmol/L Chloride (98-107) mmol/L Carbon Dioxide 20 L 21 L (22-30) mmol/L BUN 6 L 5 L (7-17) mg/dL Creatinine 0.5 L 0.5 L (0.7-1.2) mg/dL Glucose 203 H 178 H (65-100) mg/dL POC Glucose 193 H (70-105) Phosphorus (2.5-4.5) mg/dL Magnesium (1.7-2.3) mg/dL Alkaline Phosphatase (35-129) units/L 09/12/19 09/13/19 09/13/19 Range/Units 23:16 00:23 01:15 MCV (79-97) fl MCH (28-32) pg Seg Neutrophils % (40.0-70.0) % Seg Neutrophils # (1.8-7.7) K/mm3 VBG pH (7.320-7.420) Sodium (137-145) mmol/L Potassium (3.6-5.0) mmol/L Chloride (98-107) mmol/L Carbon Dioxide (22-30) mmol/L BUN (7-17) mg/dL Creatinine (0.7-1.2) mg/dL Glucose (65-100) mg/dL POC Glucose 176 H 208 H 213 H (70-105) Phosphorus (2.5-4.5) mg/dL Magnesium (1.7-2.3) mg/dL Alkaline Phosphatase (35-129) units/L 09/13/19 09/13/19 09/13/19 Range/Units 02:35 04:02 06:04 MCV (79-97) fl MCH (28-32) pg Seg Neutrophils % (40.0-70.0) % Seg Neutrophils # (1.8-7.7) K/mm3 VBG pH (7.320-7.420) Sodium (137-145) mmol/L Potassium (3.6-5.0) mmol/L Chloride 110.7 H (98-107) mmol/L Carbon Dioxide (22-30) mmol/L BUN 4 L (7-17) mg/dL Creatinine 0.4 L (0.7-1.2) mg/dL Glucose (65-100) mg/dL POC Glucose 145 H 264 H (70-105) Phosphorus (2.5-4.5) mg/dL Magnesium (1.7-2.3) mg/dL Alkaline Phosphatase (35-129) units/L 09/13/19 09/13/19 09/13/19 Range/Units 07:48 09:59 11:44 MCV (79-97) fl MCH (28-32) pg Seg Neutrophils % (40.0-70.0) % Seg Neutrophils # (1.8-7.7) K/mm3 VBG pH (7.320-7.420) Sodium 135 L (137-145) mmol/L Potassium (3.6-5.0) mmol/L Chloride (98-107) mmol/L Carbon Dioxide 21 L (22-30) mmol/L BUN 4 L (7-17) mg/dL Creatinine 0.6 L (0.7-1.2) mg/dL Glucose 323 H (65-100) mg/dL POC Glucose 381 H 384 H (70-105) Phosphorus (2.5-4.5) mg/dL Magnesium (1.7-2.3) mg/dL Alkaline Phosphatase (35-129) units/L Diabetes panel 09/12/19 09/12/19 09/12/19 Range/Units 14:02 18:00 21:34 Sodium 120 L 132 L D 131 L (137-145) mmol/L Potassium 4.4 3.5 L D 3.7 (3.6-5.0) mmol/L Chloride 81.4 L 98.7 104.0 (98-107) mmol/L Carbon Dioxide 18 L 16 L 20 L (22-30) mmol/L BUN 8 7 6 L (7-17) mg/dL Creatinine 0.9 0.7 0.5 L (0.7-1.2) mg/dL Glucose 763 H* 240 H 203 H (65-100) mg/dL Calcium 9.4 8.4 9.0 (8.4-10.2) mg/dL AST 13 (5-40) units/L ALT 11 (7-56) units/L Alkaline Phosphatase 139 H (35-129) units/L Total Protein 7.7 (6.3-8.2) g/dL Albumin 4.2 (3.9-5) g/dL 09/12/19 09/13/19 09/13/19 Range/Units 23:05 04:02 09:59 Sodium 131 L 137 135 L (137-145) mmol/L Potassium 3.6 4.0 3.8 (3.6-5.0) mmol/L Chloride 104.7 110.7 H 98.5 (98-107) mmol/L Carbon Dioxide 21 L 22 21 L (22-30) mmol/L BUN 5 L 4 L 4 L (7-17) mg/dL Creatinine 0.5 L 0.4 L 0.6 L (0.7-1.2) mg/dL Glucose 178 H 91 323 H (65-100) mg/dL Calcium 8.5 8.5 9.3 (8.4-10.2) mg/dL AST (5-40) units/L ALT (7-56) units/L Alkaline Phosphatase (35-129) units/L Total Protein (6.3-8.2) g/dL Albumin (3.9-5) g/dL Calcium panel 09/12/19 09/12/19 09/12/19 Range/Units 14:02 18:00 21:34 Calcium 9.4 8.4 9.0 (8.4-10.2) mg/dL Phosphorus 2.40 L (2.5-4.5) mg/dL Albumin 4.2 (3.9-5) g/dL 09/12/19 09/13/19 09/13/19 Range/Units 23:05 04:02 09:59 Calcium 8.5 8.5 9.3 (8.4-10.2) mg/dL Phosphorus (2.5-4.5) mg/dL Albumin (3.9-5) g/dL Pituitary panel 09/12/19 09/12/19 09/12/19 Range/Units 14:02 18:00 21:34 Sodium 120 L 132 L D 131 L (137-145) mmol/L Potassium 4.4 3.5 L D 3.7 (3.6-5.0) mmol/L Chloride 81.4 L 98.7 104.0 (98-107) mmol/L Carbon Dioxide 18 L 16 L 20 L (22-30) mmol/L BUN 8 7 6 L (7-17) mg/dL Creatinine 0.9 0.7 0.5 L (0.7-1.2) mg/dL Glucose 763 H* 240 H 203 H (65-100) mg/dL Calcium 9.4 8.4 9.0 (8.4-10.2) mg/dL 09/12/19 09/13/19 09/13/19 Range/Units 23:05 04:02 09:59 Sodium 131 L 137 135 L (137-145) mmol/L Potassium 3.6 4.0 3.8 (3.6-5.0) mmol/L Chloride 104.7 110.7 H 98.5 (98-107) mmol/L Carbon Dioxide 21 L 22 21 L (22-30) mmol/L BUN 5 L 4 L 4 L (7-17) mg/dL Creatinine 0.5 L 0.4 L 0.6 L (0.7-1.2) mg/dL Glucose 178 H 91 323 H (65-100) mg/dL Calcium 8.5 8.5 9.3 (8.4-10.2) mg/dL Adrenal panel 09/12/19 09/12/19 09/12/19 Range/Units 14:02 18:00 21:34 Sodium 120 L 132 L D 131 L (137-145) mmol/L Potassium 4.4 3.5 L D 3.7 (3.6-5.0) mmol/L Chloride 81.4 L 98.7 104.0 (98-107) mmol/L Carbon Dioxide 18 L 16 L 20 L (22-30) mmol/L BUN 8 7 6 L (7-17) mg/dL Creatinine 0.9 0.7 0.5 L (0.7-1.2) mg/dL Glucose 763 H* 240 H 203 H (65-100) mg/dL Calcium 9.4 8.4 9.0 (8.4-10.2) mg/dL Total Bilirubin 0.40 (0.1-1.2) mg/dL AST 13 (5-40) units/L ALT 11 (7-56) units/L Alkaline Phosphatase 139 H (35-129) units/L Total Protein 7.7 (6.3-8.2) g/dL Albumin 4.2 (3.9-5) g/dL 09/12/19 09/13/19 09/13/19 Range/Units 23:05 04:02 09:59 Sodium 131 L 137 135 L (137-145) mmol/L Potassium 3.6 4.0 3.8 (3.6-5.0) mmol/L Chloride 104.7 110.7 H 98.5 (98-107) mmol/L Carbon Dioxide 21 L 22 21 L (22-30) mmol/L BUN 5 L 4 L 4 L (7-17) mg/dL Creatinine 0.5 L 0.4 L 0.6 L (0.7-1.2) mg/dL Glucose 178 H 91 323 H (65-100) mg/dL Calcium 8.5 8.5 9.3 (8.4-10.2) mg/dL Total Bilirubin (0.1-1.2) mg/dL AST (5-40) units/L ALT (7-56) units/L Alkaline Phosphatase (35-129) units/L Total Protein (6.3-8.2) g/dL Albumin (3.9-5) g/dL Assessment and Plan - Patient Problems (1) Abscess of buttock, right Current Visit: Yes Status: Acute Plan to address problem: May have a very small abscess. Pt would like I&D. Procedure, risks, benefits discussed. All questions answered. Will perform I&D when patient goes to her room. Please call with questions. time=20min
[2019-09-13] MEDS: D5W/0.45% NACL/KCL 20 MEQ 20 MEQ/1,000 ML BAG IV SCH (13:27)
[2019-09-13] MEDS ORDERED: LIDOCAINE (1%) 10 MG/1 ML VIAL 20 ML MDV INFILTRATI ONE (17:05)
--- NOTE | 2019-09-13 18:38 | Procedure Note ---
Date of procedure: 09/13/19 Pre-op diagnosis: right buttock abscess Post-op diagnosis: same Procedure: I&D of right buttock abscess Findings: small amount of purulent material restricted to the subQ layer. Anesthesia: local Surgeon: DAVID CHUA Estimated blood loss: minimal Pathology: list (culture swab) Specimen disposition: to lab Condition: stable Disposition: floor
[2019-09-13 18:49] LABS: BUN/Creatinine Ratio 13; Blood Urea Nitrogen 8 mg/dL (7-17); Calcium 9.2 mg/dL (8.4-10.2); Hemolysis Index 10
[2019-09-13] MEDS: INSULIN GLARGINE 100 UNITS/ML SUB-Q SCH (22:42)
[2019-09-14] MEDS: CLINDAMYCIN 600 MG/50 mL 600 MG/50 ML BAG IV SCH ×3 (00:29→18:58)
[2019-09-14] MEDS ORDERED: INSULIN GLARGINE 100 UNITS/ML SUB-Q SCH (08:00)
[2019-09-14 09:05] LABS: BUN/Creatinine Ratio 14; Blood Urea Nitrogen 7 mg/dL (7-17); Calcium 8.9 mg/dL (8.4-10.2); Hemolysis Index 15
[2019-09-14] MEDS: INSULIN LISPRO 100 UNIT/ML SUB-Q SCH ×4 (09:23→22:21)
[2019-09-14] MEDS: INSULIN GLARGINE 100 UNITS/ML SUB-Q SCH (09:24)
--- NOTE | 2019-09-14 09:39 | Progress Note ---
Assessment and Plan - Patient Problems (1) Abscess of buttock, right Current Visit: Yes Status: Acute Plan to address problem: Pt stable. s/p I&D of right buttock abscess. Cavity was very small. Culture results pending. Packing may be removed tomorrow. Needs to do sitz baths at least 2-3 times a day and definitely after using the bathroom. Okay for discharge from surgical standpoint. May follow up in the office in 2 weeks. Please call with questions. Subjective Date of service: 09/14/19 Patient Reports: Positive: no new complaints, pain is less Objective Vital Signs - 12hr 09/13/19 09/14/19 09/14/19 22:00 00:24 05:44 Temperature 98.4 F 97.6 F Pulse Rate 90 82 Respiratory 18 16 Rate Respiratory 18 Rate [Abdomen] Blood Pressure 118/78 89/57 O2 Sat by Pulse 100 100 Oximetry - General physical appearance no distress, no pain - Labs 09/12/19 14:02 09/14/19 08:04 Diabetes panel 09/13/19 09/13/19 09/14/19 Range/Units 09:59 17:02 08:04 Sodium 135 L 130 L 137 D (137-145) mmol/L Potassium 3.8 4.3 4.1 (3.6-5.0) mmol/L Chloride 98.5 96.5 L 99.8 (98-107) mmol/L Carbon Dioxide 21 L 21 L 20 L (22-30) mmol/L BUN 4 L 8 7 (7-17) mg/dL Creatinine 0.6 L 0.6 L 0.5 L (0.7-1.2) mg/dL Glucose 323 H 525 H* 288 H (65-100) mg/dL Hemoglobin A1c (4-6) % Calcium 9.3 9.2 8.9 (8.4-10.2) mg/dL 09/14/19 Range/Units 08:04 Sodium (137-145) mmol/L Potassium (3.6-5.0) mmol/L Chloride (98-107) mmol/L Carbon Dioxide (22-30) mmol/L BUN (7-17) mg/dL Creatinine (0.7-1.2) mg/dL Glucose (65-100) mg/dL Hemoglobin A1c 17.4 H (4-6) % Calcium (8.4-10.2) mg/dL Calcium panel 09/13/19 09/13/19 09/14/19 Range/Units 09:59 17:02 08:04 Calcium 9.3 9.2 8.9 (8.4-10.2) mg/dL Pituitary panel 09/13/19 09/13/19 09/14/19 Range/Units 09:59 17:02 08:04 Sodium 135 L 130 L 137 D (137-145) mmol/L Potassium 3.8 4.3 4.1 (3.6-5.0) mmol/L Chloride 98.5 96.5 L 99.8 (98-107) mmol/L Carbon Dioxide 21 L 21 L 20 L (22-30) mmol/L BUN 4 L 8 7 (7-17) mg/dL Creatinine 0.6 L 0.6 L 0.5 L (0.7-1.2) mg/dL Glucose 323 H 525 H* 288 H (65-100) mg/dL Calcium 9.3 9.2 8.9 (8.4-10.2) mg/dL Adrenal panel 09/13/19 09/13/19 09/14/19 Range/Units 09:59 17:02 08:04 Sodium 135 L 130 L 137 D (137-145) mmol/L Potassium 3.8 4.3 4.1 (3.6-5.0) mmol/L Chloride 98.5 96.5 L 99.8 (98-107) mmol/L Carbon Dioxide 21 L 21 L 20 L (22-30) mmol/L BUN 4 L 8 7 (7-17) mg/dL Creatinine 0.6 L 0.6 L 0.5 L (0.7-1.2) mg/dL Glucose 323 H 525 H* 288 H (65-100) mg/dL Calcium 9.3 9.2 8.9 (8.4-10.2) mg/dL
--- NOTE | 2019-09-14 11:53 | Discharge Summary ---
Providers - Providers Date of Admission: 09/12/19 15:53 Date of discharge: 09/15/19 Attending physician: MILENA RYAN 09/12/19 15:20 Consult to Dietitian/Nutrition [CONS] Routine Physician Instructions: Reason For Exam: DKA Reason for Consult: Nutrition Recommendations Reason for Consult: Diet education 09/13/19 00:54 Consult to Physician [CONS] Routine Comment: Consulting Provider: JAMES CARPENTER Physician Instructions: Reason For Exam: Rt gluteal abscess [facility] Condition[facility] Hospital course: 33-year-old female with history of diabetes presented wity nausea and vomiting, and a boil on her right buttock area. Patient is not taking her insulin and medications regularly. Patient also complains of vaginal yeast infection. No fever or chills. She was diagnosed with diabetic ketoacidosis with glucose of 763, CO2 of 18, anion gap 25. Patient was started on Insulin drip, iv fluids and admitted to ICU. Glucose improved and she was transferred to Medical floor. I and D right gluteal abscess was done by Dr. Mariana HILL. Resolved. Patient previously with metformin 500 mg twice a day at home. Diabetes mellitus uncontrolled Start Novolin 70/30 bid Right gluteal abscess. s/p I and D done by Dr. Peña. Hyponatremia. Resolved. Disposition: - TO HOME OR SELFCARE - Discharge Diagnoses (1) Abscess of buttock, right Status: Acute (2) Diabetic ketoacidosis Status: Acute Qualifiers: Diabetes mellitus type: type 1 (3) Hyponatremia Status: Acute Core Measure Documentation - Palliative Care Palliative Care/ Comfort Measures: Not Applicable - Core Measures Any of the following diagnoses?: none Exam - Constitutional Vitals: Temp Pulse Resp BP Pulse Ox 97.6 F 82 16 89/57 100 09/14/19 05:44 09/14/19 05:44 09/14/19 05:44 09/14/19 05:44 09/14/19 05:44 Plan Activity: advance as tolerated Diet: low fat, low cholesterol, low salt, diabetic Plan of Treatment: 1.Follow up with PCP or [facility] in 1 week. 2.Check fingerstick before every meal and at bedside and show log to Physician. Follow up with: NIRANJAN LONGO MD [Primary Care Provider] - 7 Days Forms: Work/School Release Form Prescriptions: Clindamycin [Clindamycin CAP] 300 mg PO Q8H 5 Days #15 cap Insulin NPH/Regular [NovoLIN 70/30] 20 unit SUB-Q BIDDIAB #1 vial
--- NOTE | 2019-09-14 12:35 | Progress Note ---
Assessment and Plan Assessment and plan: DKA. Resolved. Patient previously with metformin 500 mg twice a day at home. Diabetes mellitus uncontrolled Start Novolin 70/30 bid Right gluteal abscess. s/p I and D done by Dr. Peña. Hyponatremia. Resolved. History Interval history: Nausea and vomiting resolved, Abscess buttock s/p I and D Hospitalist Physical - Physical exam Narrative exam: Gen: Not in acute distress, lying in bed HEENT: Normocephalic, atraumatic Neck: supple, no JVD Heart: S1 and S2 reg, no murmurs, rubs or gallop Lungs: Clear to auscultation bilaterally, Abd: soft, NT, non distended, normal bowel sounds Neuro: Awake, alert, oriented X 3, moves all ext Buttocks: dressing over right buttock - Constitutional Vitals: Temp Pulse Resp BP Pulse Ox 97.6 F 82 16 89/57 100 09/14/19 05:44 09/14/19 05:44 09/14/19 05:44 09/14/19 05:44 09/14/19 05:44 General appearance: Present: no acute distress Results - Labs CBC & Chem 7: 09/12/19 14:02 09/14/19 08:04 Labs: Laboratory Last Values WBC 10.5 K/mm3 (4.5-11.0) 09/12/19 14:02 RBC 4.33 M/mm3 (3.65-5.03) 09/12/19 14:02 Hgb 14.2 gm/dl (10.1-14.3) 09/12/19 14:02 Hct 42.9 % (30.3-42.9) 09/12/19 14:02 MCV 99 fl (79-97) H 09/12/19 14:02 MCH 33 pg (28-32) H 09/12/19 14:02 MCHC 33 % (30-34) 09/12/19 14:02 RDW 14.0 % (13.2-15.2) 09/12/19 14:02 Plt Count 240 K/mm3 (140-440) 09/12/19 14:02 Lymph % (Auto) 18.0 % (13.4-35.0) 09/12/19 14:02 Moody % (Auto) 6.9 % (0.0-7.3) 09/12/19 14:02 Eos % (Auto) 0.4 % (0.0-4.3) 09/12/19 14:02 Baso % (Auto) 0.4 % (0.0-1.8) 09/12/19 14:02 Lymph # 1.9 K/mm3 (1.2-5.4) 09/12/19 14:02 Moody # 0.7 K/mm3 (0.0-0.8) 09/12/19 14:02 Eos # 0.0 K/mm3 (0.0-0.4) 09/12/19 14:02 Baso # 0.0 K/mm3 (0.0-0.1) 09/12/19 14:02 Seg Neutrophils % 74.3 % (40.0-70.0) H 09/12/19 14:02 Seg Neutrophils # 7.8 K/mm3 (1.8-7.7) H 09/12/19 14:02 VBG pH 7.301 (7.320-7.420) L 09/12/19 14:02 Sodium 137 mmol/L (137-145) D 09/14/19 08:04 Potassium 4.1 mmol/L (3.6-5.0) 09/14/19 08:04 Chloride 99.8 mmol/L (98-107) 09/14/19 08:04 Carbon Dioxide 20 mmol/L (22-30) L 09/14/19 08:04 Anion Gap 21 mmol/L 09/14/19 08:04 BUN 7 mg/dL (7-17) 09/14/19 08:04 Creatinine 0.5 mg/dL (0.7-1.2) L 09/14/19 08:04 Estimated GFR > 60 ml/min 09/14/19 08:04 BUN/Creatinine Ratio 14 % 09/14/19 08:04 Glucose 288 mg/dL (65-100) H 09/14/19 08:04 POC Glucose 391 (70-105) H 09/13/19 21:53 Hemoglobin A1c 17.4 % (4-6) H 09/14/19 08:04 Calcium 8.9 mg/dL (8.4-10.2) 09/14/19 08:04 Phosphorus 2.40 mg/dL (2.5-4.5) L 09/12/19 18:00 Magnesium 1.60 mg/dL (1.7-2.3) L 09/12/19 18:00 Total Bilirubin 0.40 mg/dL (0.1-1.2) 09/12/19 14:02 AST 13 units/L (5-40) 09/12/19 14:02 ALT 11 units/L (7-56) 09/12/19 14:02 Alkaline Phosphatase 139 units/L (35-129) H 09/12/19 14:02 Total Protein 7.7 g/dL (6.3-8.2) 09/12/19 14:02 Albumin 4.2 g/dL (3.9-5) 09/12/19 14:02 Albumin/Globulin Ratio 1.2 % 09/12/19 14:02 HCG, Qual Negative (Negative) 09/12/19 14:02 Urine Color Colorless (Yellow) 09/12/19 16:10 Urine Turbidity Clear (Clear) 09/12/19 16:10 Urine pH 6.0 (5.0-7.0) 09/12/19 16:10 Ur Specific [place] 1.025 (1.003-1.030) 09/12/19 16:10 Urine Protein <15 mg/dl mg/dL (Negative) 09/12/19 16:10 Urine Glucose (UA) >=500 mg/dL (Negative) 09/12/19 16:10 Urine Ketones 20 mg/dL (Negative) 09/12/19 16:10 Urine Blood Neg (Negative) 09/12/19 16:10 Urine Nitrite Neg (Negative) 09/12/19 16:10 Urine Bilirubin Neg (Negative) 09/12/19 16:10 Urine Urobilinogen < 2.0 mg/dL (<2.0) 09/12/19 16:10 Ur Leukocyte Esterase Neg (Negative) 09/12/19 16:10 Urine WBC (Auto) 1.0 /HPF (0.0-6.0) 09/12/19 16:10 Urine RBC (Auto) < 1.0 /HPF (0.0-6.0) 09/12/19 16:10 U Epithel Cells (Auto) < 1.0 /HPF (0-13.0) 09/12/19 16:10 Urine Mucus Few /HPF 09/12/19 16:10 Active Medications - Current Medications Current Medications: Generic Name Dose Route Start Last Admin Trade Name Freq PRN Reason Stop Dose Admin Dextrose 50 ml 09/13/19 20:01 D50w (25gm) Syringe IV Q30MIN PRN Hypoglycemia Protocol Clindamycin HCl 600 mg in 50 mls @ 100 mls/hr 09/13/19 01:00 09/14/19 00:29 Cleocin 600 Mg/50 Ml IV 100 mls/hr Q8H ROHAN Administration Protocol Insulin Glargine 15 units 09/13/19 21:00 09/14/19 09:24 Lantus SUB-Q 15 units BID ROHAN Administration Insulin Human Lispro 0 unit 09/13/19 07:30 09/14/19 09:23 Humalog SUB-Q 4 unit ACHS ROHAN Administration Protocol Nutrition/Malnutrition Assess - Dietary Evaluation Nutrition/Malnutrition Findings: Nutrition Notes Start: 09/13/19 13: 28 Freq: Status: Active Protocol: Document 09/13/19 13:28 CC (Rec: 09/13/19 13:55 CC [id number]) Co-Sign 09/13/19 13:28 LP Nutrition Notes Need for Assessment generated from: cook helper meat,Education Initial or Follow up Assessment Current Diagnosis Diabetes Other Pertinent Diagnosis nicotine dependence, cholecystecomy, right gluteal abscess Current Diet Const. CHO Labs/Tests Na 135 BG 323 BUN 4 Creat 0.6 Pertinent Medications reviewed Height 5 ft 6 in Weight 54.431 kg Usual Body Weight 77 kg [place] Body Weight (kg) 59.09 BMI 19.3 Intake Prior to Admission Good Weight change and time frame 29%/1 year Weight Status Appropriate Subjective/Other Information Screen for nutrition recommendations d/t DKA. Pt reported she has lost 50lbs since she was dx with DM 1 year ago. Pt reported she has had education before and did not want education or DM information at this time. Pt reported she wanted information on healthy ways to gain back some of the wt she has lost. Pt asked about ONS she could have and wanted ONS BID. Went over healthy ways to gain back wt that would align with her DM. Burn Absent Trauma Absent GI Symptoms None Food Allergy No Current % PO Negligible Minimum of two criteria No Interpretation of Weight Loss (severe) > 20% in 1 year #1 Nutrition Diagnosis Food and nutrition-related knowledge deficit Etiology non-compliance with DM reccomendations As Evidenced by Signs and Symptoms BG of 323, DKA Is patient on ventilator? No Is Patient Ambulatory and/or Out of Bed Yes REE-([facility]-ambulatory/OOB) [ [id number] [id number]] Calculation Used for Recommendations [facility] Additional Notes PRO: 43-54g/day (0.8-1.0g/kg) Fluid: 1 ml/kcal Nutrition Intervention Change Diet Order: continue const. CHO Add Supplement/Snack (indicate name/kcal Glucerna strawberry, vanilla /protein ) BID Goal #1 DM diet compliance Anticipated Discharge Needs: consistent CHO Revisit per MD consult or patient Sign Off request:
[2019-09-14] MEDS ORDERED: INSULIN LISPRO 100 UNIT/ML SUB-Q ONE (12:40)
[2019-09-14] MEDS: INSULIN NPH/REGULAR 70/30 INJ SUB-Q SCH (18:59)
[2019-09-15] MEDS: CLINDAMYCIN 600 MG/50 mL 600 MG/50 ML BAG IV SCH (02:26)
[2019-09-15 06:23] VITALS: BP 98/61
[2019-09-15] MEDS: INSULIN LISPRO 100 UNIT/ML SUB-Q SCH ×2 (09:14→13:25)
[2019-09-15] MEDS: INSULIN NPH/REGULAR 70/30 INJ SUB-Q SCH (09:15)
--- NOTE | 2019-09-15 09:20 | Event Note ---
Date: 09/15/19 Patient stable to go home today. Blood glucose improcved. I have seen and examined her today.
== END 2019-09-15 13:45 | disposition home or self-care (01) | DRG 579 ==
LOC: ED 13:43 → CC1 15:53 → 3A 09-13 11:12
PROVIDERS: ADMIT Internal Medicine; ATTEND Internal Medicine
PROC: 0J990ZZ Drainage of Buttock Subcutaneous Tissue and Fascia, Open Approach (ICD-10-PCS; principal; 2019-09-13)
DX: L02.31 Cutaneous abscess of buttock (principal); E11.10 Type 2 diabetes mellitus with ketoacidosis without coma; E87.1 Hypo-osmolality and hyponatremia; E11.65 Type 2 diabetes mellitus with hyperglycemia; F17.210 Nicotine dependence, cigarettes, uncomplicated; B37.3 Candidiasis of vulva and vagina; Z90.49 Acquired absence of other specified parts of digestive tract; Z88.0 Allergy status to penicillin; Z79.4 Long term (current) use of insulin; Z79.899 Other long term (current) drug therapy; Z91.14 Patient's other noncompliance with medication regimen; Z82.49 Family history of ischemic heart disease and other diseases of the circulatory system
CPT/HCPCS: 36415; 80048; 80053; 81001; 82805; 82962; 83036; 83735; 84100; 84703; 85025; 87116; 96374; G0378; J1815; J7030